=== PATIENT | male | born 1995 | race Caucasian/White ===

== ENCOUNTER 2023-07-17 18:44 | Emergency (ER) | payer OTHER, SELFPAY ==
[2023-07-17 18:44] VITALS: BP 171/92; PULSE 106; RESP 22; TEMP 36.3; O2SAT 96; BMI 81.2
--- NOTE | 2023-07-17 19:11 | ED.VIS.GI ---
HPI HPI - GI History of Present Illness Chief Complaint: Abd Pain Informant: patient Abdominal Pain/Flank Pain Onset: Today and Yesterday Context: Gradual Onset Timing: Continuous Current Severity: Mild Maximum Severity: Mild Nausea/Vomiting/Emesis GI Symptom: Positive for Nausea; Negative for Vomiting Onset: Today and Yesterday Severity: Mild Diarrhea/Melena/Hematochezia GI Symptom: Positive for Diarrhea; Negative for Melena or Hematochezia Onset: Today and Yesterday Stool Quality: Positive for Loose Severity: Mild Associated Symptoms Associated Symptoms: Negative for Dysuria, Frequency or Hematuria Narrative Narrative: 27-year-old male no signet past medical history. No prior abdominal surgery. States yesterday and today has had nausea with some loose stools. Denies vomiting. Denies fever. Denies dysuria. Denies any significant abdominal pain. No abdominal trauma. He really just wanted a work excuse. He went to an urgent care who was concerned and seen in the emergency department for further evaluation. Prior similar symptoms: Yes Recent Illness/Hospitalization: No PFSH PFSH Medical History no medical history no medical history Home Medications Ibuprofen [Motrin] 800 mg PO TID PRN PRN Pain #20 tabs 05/31/15 [Rx Last Taken Unknown] cephalexin 500 mg capsule 500 mg PO Q6 ##40 05/31/15 [Rx Last Taken Unknown] cyclobenzaprine 10 mg tablet 10 mg PO TID PRN Muscle Spasm ##20 05/31/15 [Rx Last Taken Unknown] oxycodone-acetaminophen 5 mg-325 mg tablet 1 - 2 tab PO Q4H PRN PRN Pain #20 tabs 05/31/15 [Rx Last Taken Unknown] Allergy/AdvReac Type Severity Reaction Status Date / Time Penicillins Allergy Hives Verified 07/17/23 18:47 Surgical History no surgical history Social History Smoking Status: Never smoker ROS ROS ED ROS Narrative Nausea and loose stools. Review of Systems ROS Unobtainable: Denies due to encephalopathy Constitutional Constitutional ED: Denies chills or fever(s) ENT ENT ED: Denies ear pain Cardiovascular Cardiovascular: Denies chest pain Respiratory/Chest Respiratory/Chest: Denies cough or dyspnea Gastrointestinal Gastrointestinal: Reports diarrhea and nausea; Denies abdominal pain, constipation, melena or vomiting Genitourinary Genitourinary ED: Denies dysuria or hematuria Musculoskeletal Musculoskeletal: Denies arthralgias Integumentary Denies abscess Neurologic Neurologic: Denies headache(s) Psychiatric Psychiatric: Denies anxiety Endocrine Endocrinology: Denies polydipsia Hematologic/Lymphatic Hematologic/Lymphatic: Denies easy bleeding Allergic/Immunologic Allergic/Immunologic ED: Denies mouth swelling or tongue swelling EXAM Physical Exam Narrative Exam Narrative: 27-year-old male vital signs stable afebrile. Does not look septic toxic or in any distress. H EENT exam unremarkable. Neck nontender no lymphadenopathy. Lungs clear to auscultation bilaterally. Heart regular rhythm no murmur. Chest were nontender. Abdomen soft, nontender, nondistended normal bowel sounds no peritoneal signs. Patient has absolutely no abdominal tenderness. No right lower quadrant or McBurney's point tenderness. No obvious hernia or mass. No distention. Moving all 4 extremities. Neurologically is awake and alert with no focal motor deficits. Const Vital Signs: 07/17/23 18:44 Temperature 97.4 F L Temperature Source Temporal Pulse Rate 106 H Respiratory Rate 22 H Blood Pressure 171/92 H Blood Pressure Mean 118 Pulse Ox 96 Oxygen Delivery Method Room Air Positive well nourished, well developed and obese; Negative for cachectic, contractures or unkempt General Appearance ED: well developed and NAD; Negative for unkempt, cachectic, contractures or pallor Nutritional Appearance: obese; Negative for cachectic HEENT Reports moist mucous membranes normocephalic and atraumatic; Negative for trauma or tenderness Eyes PERRL and EOMs intact bilaterally General Eye ED: Negative for pale conjunctiva, scleral icterus or other Neck no lymphadenopathy, supple and no JVD General: Negative for tenderness Carotids: Negative for other Lymph Lymphatic: Negative for other Resp normal respiratory effort and clear to auscultation bilaterally Effort and Inspection: Negative for respiratory distress Auscultation: Negative for rales, rhonchi or wheezes Cardio regular rate, regular rhythm, S1 normal heart sound, S2 normal heart sound and no murmurs Rate: Negative for bradycardia or tachycardic Rhythm: Negative for abnormal rhythm GI non-tender, non-distended and no masses Inspection: Negative for abdominal distention Auscultation: normoactive bowel sounds Palpation: soft; Negative for tender, guarding or rigid Back/Spine no CVA tenderness General Back: Negative for CVA tenderness Cervical Spine: Negative for cervical spine tenderness Thoracic Spine / Upper Back: Negative for thoracic spinal tenderness Lumbar Spine / Lower Back: Negative for lumbar spinal tenderness Coccyx: Negative for other Extremity full ROM General Extremety ED: Negative for edema or tenderness General Extremity: Negative for edema Neuro CN's II-XII intact bilaterally and moves all extremities Sensorium / Orientation: alert, oriented to person, oriented to place and oriented to time; Negative for orientation impaired, confused, lethargic or stuporous Motor Exam: strength 5/5 throughout Psych mental status grossly normal and thought process normal Appearance: Negative for unkempt Attitude: No agitated Mood & Affect: Negative for depressed, anxious or tearful Skin no wounds General Skin Exam: Negative for jaundice or pallor Lesions: no lesions Rashes: no rashes Trauma: Negative for abrasion Nails: Negative for discolored MDM MDM MDM Narrative Medical decision making narrative: 27-year-old male history and symptoms consistent with a viral gastroenteritis. Abdomen is completely benign. He has had no vomiting. I do not think he needs any labs. He definitely at this time do not think he needs any imaging. He and I discussed appendicitis and other possible diagnoses if his symptoms progress he knows to return. He did not want a nausea medication at home. Discharge Plan Triage Chief Complaint: Abd Pain ED Provider: Alan Nelson Dx/Rx/DC Orders Clinical Impression: Gastroenteritis Instructions: ED Gastroenteritis, Viral (Adult) Prescriptions: No Action cyclobenzaprine 10 MG tablet 10 mg PO TID PRN (Reason: Muscle Spasm) Qty: 20 0RF oxycodone-acetaminophen 1 TABLET tablet 1 - 2 tab PO Q4H PRN PRN (Reason: Pain) Qty: 20 0RF Ibuprofen [Motrin] 800 MG tablet 800 mg PO TID PRN PRN (Reason: Pain) Qty: 20 0RF cephalexin 500 MG capsule 500 mg PO Q6 Qty: 40 0RF Primary Care Provider: NOT,DEFINED Referrals: Jc Dacosta MD [Med Staff - [employer]] - 3-5 Days if not improving NOT,DEFINED [Primary Care Provider] - Activity Restrictions/Additional Instructions: This appears to be a viral gastroenteritis. Plenty of fluids and rest. Increase your diet slowly as tolerated. Motrin and Tylenol for any pain. If you develop increasing abdominal pain specifically in the right lower quadrant you need to be reevaluated. At this time there is no signs of this being appendicitis. Disposition Disposition: Home, Self Care
== END 2023-07-17 19:20 | disposition home or self-care (01) ==
LOC: ED 19:15
PROVIDERS: Emergency Provider Emergency Medicine; Visit Provider Emergency Medicine
DX: K52.9 Noninfective gastroenteritis and colitis, unspecified (principal)
CPT/HCPCS: 99282; A4216

== ENCOUNTER → 2023-08-09 | Outpatient (CLI) | payer OTHER, SELFPAY | END | disposition home or self-care (01) | LOC: SL 20:25 | PROVIDERS: Referring Provider Nurse Practitioner Primary Care; Visit Provider Nurse Practitioner Primary Care | DX: R06.83 Snoring (principal); E66.01 Morbid (severe) obesity due to excess calories; Z68.45 Body mass index [BMI] 70 or greater, adult; R40.0 Somnolence | CPT/HCPCS: 95811 ==

== ENCOUNTER → 2023-10-11 | Outpatient (CLI) | payer OTHER, SELFPAY ==
--- OUTSIDE RECORDS SUMMARY | 2023-10-11 20:00 | XMS RPT_ITS | CCD ---
Author Name Unknown Address [address] [place] [address] Organization [facility] Care Team Providers [employer] Name Role Phone GUZMAN CAMPOS Unavailable Unavailable GUZMAN CAMPOS Unavailable Unavailable GUZMAN CAMPOS Unavailable Unavailable NO, DOCTOR ON Unavailable Unavailable NO, DOCTOR ON Unavailable Unavailable Unavailable Primary Care Provider Unavailabl e Unavailable Primary Care Provider Unavailabl e Ambika Johnson MD Primary Care Provider Podlogar CENTRAL SUPPLY TECHNICIAN.Toby MCCURDY Unavailable AMBIKA JOHNSON Primary Care Unavailab le PODLOGAR, TOBY Referring Unavailable PODLOGAR, TOBY Attending Unavailable SELF Referring Unavailable AMBIKA JOHNSON Primary Care Unavailab ELDER Zuñiga Attending Unavailable PODLOGAR, TOBY Attending Unavailable AMBIKA JOHNSON Primary Care Unavailab AMBIKA Burks Primary Care Unavailab le PODLOGAR, TOBY Attending Unavailable AMBIKA JOHNSON Primary Care Unavailab le AMBIKA JOHNSON Primary Care Unavailab le PODLOGAR, TOBY Attending Unavailable AMBIKA JOHNSON Primary Care Unavailab AMBIKA Burks Primary Care Unavailab le PODLOGAR, TOBY Attending Unavailable AMBIKA JOHNSON Primary Care Unavailab le AMBIKA JOHNSON Primary Care Unavailab le PODLOGAR, TOBY Attending Unavailable Allergies Allergy Classification Reported Allergen(s) Allergy Type Date of Onset Reaction(s) Facility (1 source) acetylcarnitine Drug Allergy [facility] Repository (2 sources) Penicillins; Translations: [PENICILLINS] [facility] Work Phone: (18 sources) Acetylcarnitine; Translations: [ACETYLCARNITINE] Drug Allergy 3 Unknown [facility] (17 sources) Penicillins Drug Allergy 5 Hives [facility] Work Phone: Medications Completed/Discontinued Medications Medication Drug Class(es) Dates Sig (Normalized) Sig (Original) fluticasone propionate 0.05 mg/actuat metered dose nasal spray (18 sources) Corticosteroid Start: 02-11-2022 take 2 spray(s) by mouth once daily fluticasone (FLONASE) 50 mcg/actuation nasal spray Use 2 Sprays in each nostril once daily. Rinse mouth after use. 11.1 mL 0 02/11/2022 Active Problems Active Problems Problem Classification Problem Date Documented Da te Episodic/Chronic Abdominal pain (1 source) Right lower quadrant pain; Translations: [Right lower quadrant pain] 07-17-2023 Episodic Anxiety disorders (4 sources) Mixed anxiety and depressive disorder; Translations: [Anxiety disorder, unspecified] Onset: 03-26-2023 Chronic Essential hypertension (3 sources) Benign essential hypertension; Translations: [Essential (primary) hypertension] Onset: 08-30-2023 08-30-2023 Chronic Gastrointestinal hemorrhage (1 source) Hematochezia; Translations: [Melena] Episodic Mood disorders (1 source) Mood disorders; Translations: [Anxiety and depression] Onset: 03-26-2023 Other circulatory disease (1 source) Elevated blood-pressure reading, without diagnosis of hypertension; Translations: [Elevated BP without diagnosis of hypertension] Onset: 08-02-2023 Episodic Other lower respiratory disease (3 sources) Snoring; Translations: [Snoring] Episodic Other non-traumatic joint disorders (2 sources) Chronic pain of left upper limb; Translations: [Pain in left shoulder] 05-16-2023 Episodic Other nutritional; endocrine; and metabolic disorders (19 sources) Body mass index 40+ - severely obese; Translations: [Morbid (severe) obesity due to excess calories] Onset: 02-18-2018 02-18-2018 Chronic Other nutritional; endocrine; and metabolic disorders (2 sources) Morbid obesity; Translations: [Morbid (severe) obesity due to excess calories] Chronic Other nutritional; endocrine; and metabolic disorders (1 source) Severe obesity; Translations: [Morbid (severe) obesity due to excess calories] 12-01-2023 Chronic Other nutritional; endocrine; and metabolic disorders (2 sources) Morbid (severe) obesity due to excess calories; Translations: [Class 3 severe obesity without serious comorbidity with body mass index (BMI) greater than or equal to 70 in adult, unspecified obesity type (HCC)] Onset: 03-26-2023 Chronic Other nutritional; endocrine; and metabolic disorders (2 sources) Body mass index (BMI) 70 or greater, adult; Translations: [Class 3 severe obesity without serious comorbidity with body mass index (BMI) greater than or equal to 70 in adult, unspecified obesity type (HCC)] Onset: 03-26-2023 Chronic Other upper respiratory infections (1 source) Acute sinusitis; Translations: [Acute sinusitis, unspecified] Episodic Residual codes; unclassified (1 source) Obstructive sleep apnea syndrome; Translations: [Obstructive sleep apnea (adult) (pediatric)] 08-30-2023 Chronic Residual codes; unclassified (1 source) Obstructive sleep apnea (adult) (pediatric); Translations: [ERICA (obstructive sleep apnea)] Onset: 08-30-2023 Chronic Residual codes; unclassified (1 source) Pain; Translations: [Pain, unspecified] 05-16-2023 Episodic Viral infection (1 source) Viral disease; Translations: [Viral infection, unspecified] 09-05-2023 Episodic Past or Other Problems Problem Classification Problem Date Documented Da te Episodic/Chronic Coma; stupor; and brain damage (4 sources) Daytime somnolence; Translations: [Somnolence] Onset: 03-26-2023 Episodic Other lower respiratory disease (1 source) Snoring; Translations: [Snoring] Onset: 03-26-2023 Episodic Other screening for suspected conditions (not mental disorders or infectious disease) (3 sources) Patient encounter status; Translations: [Encounter for screening for lipoid disorders] Onset: 03-27-2023 Episodic Results Test Name Value Interpretation Reference Range Facil ity Vital Signs Date Time Vital Sign Value Performing Clinician [facility] 09-13-2023 10:27-0500 Body weight 248.75 kg Tboy Chester APRN.CNP Work Phone: [facility] 09-13-2023 10:27-0500 Diastolic blood pressure 88 mm[Hg] Toby Chester APRN.CNP Work Phone: [facility] 09-13-2023 10:27-0500 Heart rate 92 /min Toby Podlogar CENTRAL SUPPLY TECHNICIAN.CUT OFF [employer] Work Phone: [facility] 09-13-2023 10:27-0500 SaO2% (BldA) [Mass fraction] 98 % Toby Podlogar CENTRAL SUPPLY TECHNICIAN.CUT OFF [employer] Work Phone: [facility] 09-13-2023 10:27-0500 Systolic blood pressure 132 mm[Hg] Toby Podlogar CENTRAL SUPPLY TECHNICIAN.CUT OFF [employer] Work Phone: [facility] 09-05-2023 18:47-0500 Body temperature 98.6 [degF] Lefty Pendlebury CENTRAL SUPPLY TECHNICIAN.CUT OFF [employer] Work Phone: [facility] 09-05-2023 18:47-0500 Body weight 243.76 [facility] CENTRAL SUPPLY TECHNICIAN.CUT OFF [employer] Work Phone: [facility] 09-05-2023 18:47-0500 Diastolic blood pressure 68 mm[Hg] Lefty Pendlebury CENTRAL SUPPLY TECHNICIAN.CUT OFF [employer] Work Phone: [facility] 09-05-2023 18:47-0500 Heart rate 102 /min Lefty Pendlebury CENTRAL SUPPLY TECHNICIAN.CUT OFF [employer] Work Phone: [facility] 09-05-2023 18:47-0500 Respiratory rate 16 /min [facility] CENTRAL SUPPLY TECHNICIAN.CUT OFF [employer] Work Phone: [facility] 09-05-2023 18:47-0500 SaO2% (BldA) [Mass fraction] 97 % Lefty Pendlebury CENTRAL SUPPLY TECHNICIAN.CUT OFF [employer] Work Phone: [facility] 09-05-2023 18:47-0500 Systolic blood pressure 122 mm[Hg] Lefty Pendlebury CENTRAL SUPPLY TECHNICIAN.CUT OFF [employer] Work Phone: [facility] 08-30-2023 11:04-0500 Diastolic blood pressure 88 mm[Hg] Toby Podlogar CENTRAL SUPPLY TECHNICIAN.CUT OFF [employer] Work Phone: [facility] 08-30-2023 11:04-0500 Heart rate 87 /min Toby Podlogar CENTRAL SUPPLY TECHNICIAN.CUT OFF [employer] Work Phone: [facility] 08-30-2023 11:04-0500 Systolic blood pressure 167 mm[Hg] Toby Podlogar CENTRAL SUPPLY TECHNICIAN.CUT OFF [employer] Work Phone: [facility] 08-30-2023 10:40-0500 Body weight 245.49 kg Toby Podlogar CENTRAL SUPPLY TECHNICIAN.CUT OFF [employer] Work Phone: [facility] 08-30-2023 10:40-0500 Respiratory rate 18 /min Toby Podlogar CENTRAL SUPPLY TECHNICIAN.CUT OFF [employer] Work Phone: [facility] 08-30-2023 10:40-0500 SaO2% (BldA) [Mass fraction] 96 % Toby Podlogar CENTRAL SUPPLY TECHNICIAN.CUT OFF [employer] Work Phone: [facility] 05-24-2023 12:09-0400 Body weight 245.22 kg Toby Podlogar CENTRAL SUPPLY TECHNICIAN.CUT OFF [employer] Work Phone: [facility] 05-24-2023 12:09-0400 Diastolic blood pressure 82 mm[Hg] Toby Podlogar CENTRAL SUPPLY TECHNICIAN.CUT OFF [employer] Work Phone: [facility] 05-24-2023 12:09-0400 Heart rate 89 /min Toby Podlogar CENTRAL SUPPLY TECHNICIAN.CUT OFF [employer] Work Phone: [facility] 05-24-2023 12:09-0400 Respiratory rate 18 /min Toby Podlogar CENTRAL SUPPLY TECHNICIAN.CUT OFF [employer] Work Phone: [facility] 05-24-2023 12:09-0400 SaO2% (BldA) [Mass fraction] 94 % Toby Podlogar CENTRAL SUPPLY TECHNICIAN.CUT OFF [employer] Work Phone: [facility] 05-24-2023 12:09-0400 Systolic blood pressure 126 mm[Hg] Toby Podlogar CENTRAL SUPPLY TECHNICIAN.CUT OFF [employer] Work Phone: [facility] 04-26-2023 11:43-0400 Body weight 241.04 kg Toby Podlogar CENTRAL SUPPLY TECHNICIAN.CUT OFF [employer] Work Phone: [facility] 07-28-2023 11:43-0400 Diastolic blood pressure 84 mm[Hg] Toby Podlogar CENTRAL SUPPLY TECHNICIAN.CUT OFF [employer] Work Phone: [facility] 04-26-2023 11:43-0400 Heart rate 86 /min Toby Podlogar CENTRAL SUPPLY TECHNICIAN.CUT OFF [employer] Work Phone: [facility] 04-26-2023 11:43-0400 Respiratory rate 18 /min Toby Podlogar CENTRAL SUPPLY TECHNICIAN.CUT OFF [employer] Work Phone: [facility] 04-26-2023 11:43-0400 Systolic blood pressure 132 mm[Hg] Toby Podlogar CENTRAL SUPPLY TECHNICIAN.CUT OFF [employer] Work Phone: [facility] 03-26-2023 11:01-0400 Body height 175.5 cm Toby Podlogar CENTRAL SUPPLY TECHNICIAN.CUT OFF [employer] Work Phone: [facility] 03-26-2023 11:01-0400 Body weight 240.32 kg Toby Podlogar CENTRAL SUPPLY TECHNICIAN.CUT OFF [employer] Work Phone: [facility] 03-26-2023 11:01-0400 Diastolic blood pressure 78 mm[Hg] Toby Podlogar CENTRAL SUPPLY TECHNICIAN.CUT OFF [employer] Work Phone: [facility] 03-26-2023 11:01-0400 Heart rate 98 /min Toby Podlogar CENTRAL SUPPLY TECHNICIAN.CUT OFF [employer] Work Phone: [facility] 03-26-2023 11:01-0400 Respiratory rate 18 /min Toby Podlogar CENTRAL SUPPLY TECHNICIAN.CUT OFF [employer] Work Phone: [facility] 03-26-2023 11:01-0400 SaO2% (BldA) [Mass fraction] 96 % Toby Podlogar CENTRAL SUPPLY TECHNICIAN.CUT OFF [employer] Work Phone: [facility] 03-26-2023 11:01-0400 Systolic blood pressure 136 mm[Hg] Toby Podlogar CENTRAL SUPPLY TECHNICIAN.CUT OFF [employer] Work Phone: [facility] 11-06-2022 19:19-0500 Body temperature 98.71 [degF] Bethany Britt CENTRAL SUPPLY TECHNICIAN.CUT OFF [employer] Work Phone: [facility] 11-06-2022 19:19-0500 Diastolic blood pressure 90 mm[Hg] Bethany Praisler-Wood CENTRAL SUPPLY TECHNICIAN.CUT OFF [employer] LOG Work Phone: [facility] 11-06-2022 19:19-0500 Heart rate 120 /min Bethany Praisler-Wood CENTRAL SUPPLY TECHNICIAN.CUT OFF [employer] LOG Work Phone: [facility] 11-06-2022 19:19-0500 Respiratory rate 18 /min Bethany Praisler-Wood CENTRAL SUPPLY TECHNICIAN.CUT OFF [employer] Work Phone: [facility] 11-06-2022 19:19-0500 SaO2% (BldA) [Mass fraction] 97 % Bethany Praisler-Wood CENTRAL SUPPLY TECHNICIAN.CUT OFF [employer] LOG Work Phone: [facility] 11-06-2022 19:19-0500 Systolic blood pressure 144 mm[Hg] Bethany Praisler-Wood CENTRAL SUPPLY TECHNICIAN.CUT OFF [employer] Work Phone: [facility] 02-11-2022 14:22-0400 Body temperature 98.49 [degF] Kirstin Palmer CENTRAL SUPPLY TECHNICIAN.CUT OFF [employer] LOG Work Phone: [facility] 02-11-2022 14:22-0400 Body weight 219.09 kg Kirstin Palmer CENTRAL SUPPLY TECHNICIAN.CUT OFF [employer] Work Phone: [facility] 02-11-2022 14:22-0400 Diastolic blood pressure 86 mm[Hg] Kirstin Palmer CENTRAL SUPPLY TECHNICIAN.CUT OFF [employer] LOG Work Phone: [facility] 02-11-2022 14:22-0400 Heart rate 104 /min Kirstin Palmer CENTRAL SUPPLY TECHNICIAN.CUT OFF [employer] LOG Work Phone: [facility] 02-11-2022 14:22-0400 Respiratory rate 18 /min Kirstin Palmer CENTRAL SUPPLY TECHNICIAN.CUT OFF [employer] LOG Work Phone: [facility] 02-11-2022 14:22-0400 SaO2% (BldA) [Mass fraction] 98 % Kirstin Palmer CENTRAL SUPPLY TECHNICIAN.CUT OFF [employer] LOG Work Phone: [facility] 02-11-2022 14:22-0400 Systolic blood pressure 134 mm[Hg] Kirstin Palmer CENTRAL SUPPLY TECHNICIAN.KAZ Work Phone: [facility] Encounters Encounter Date Encounter Type Care Provider Facility Start: 09-13-2023 End: 09-13-2023 ambulatory TOBY PODLOGAR Facility:[facility] Start: 09-13-2023 End: 09-13-2023 Patient encounter procedure Toby Podlogar CENTRAL SUPPLY TECHNICIAN.KAZ Work Phone: [facility] [place] Procedures Date Procedure Procedure Detail Performing Clinician Start: 09-13-2023 PFIZER-BIONTECH COVI D-19 VACCINE () AGE 12+ YR Toby Podlogar CENTRAL SUPPLY TECHNICIAN.KAZ Work Phone: Start: 09-13-2023 INFLUENZA VACCINE, A GE 6 MO - 64 YR, QUADRIVALENT (AFLURIA, FLULAVAL, FLUZONE) Toby Podlogar CENTRAL SUPPLY TECHNICIAN.KAZ Work Phone: Start: 11-06-2016 Adult depression scr eening assessment Kirstin Palmer CENTRAL SUPPLY TECHNICIAN.CUT OFF [employer]ER LOG Work Phone: Plan of Treatment Date Care Activity Detail Author Start: 05-31-2025 Urine microalbumin profile DTa P,Tdap,Td Vaccine (2 - Td or Tdap) [facility] Start: 09-13-2024 Annual PCP Team Skate Boarder fidencio Disease Visit Annual PCP Team Chronic Disease Visit [facility] Start: 03-26-2024 HEPATITIS C SCREENING HEPATITIS C [facility] Immunizations Immunization Date Immunization Notes Care Provider Fa cility 09-13-2023 COVID-19 vaccine, ag e 12+ yr, season (PFIZER-BIONTECH) Toby Podlogar CENTRAL SUPPLY TECHNICIAN.CUT OFF [employer]ER LOG Work Phone: [facility] 09-13-2023 influenza, injectabl e, quadrivalent, contains preservative Toby Podlogar CENTRAL SUPPLY TECHNICIAN.CUT OFF [employer] LOG Work Phone: [facility] 09-22-2021 influenza virus vaccine, unspecified formulation Elbert Braun MD Work Phone: [facility] 01-19-2021 COVID-19 vaccine, fu ll dose (MODERNA) Kirstin Palmer CENTRAL SUPPLY TECHNICIAN.CUT OFF [employer] LOG Work Phone: [facility] Work Phone: 12-22-2020 COVID-19 vaccine, fu ll dose (MODERNA) Kirstin Palmer CENTRAL SUPPLY TECHNICIAN.CUT OFF [employer]ER LOG Work Phone: [facility] Work Phone: 11-07-2019 influenza, injectabl e, quadrivalent, preservative free Kirstin Palmer CENTRAL SUPPLY TECHNICIAN.CUT OFF [employer]ER LOG Work Phone: [facility] Work Phone: Payers Date Payer Category Payer Unknown [id number] 2022 Unknown [id number] 2021 Unknown [employer] POS OOS [id number] 2021-Present [phone] [address] [place] [address] POS [id number] Unknown [id number] Social History Date Type Detail Facility Start: 08-04-2012 Tobacco smoking stat [facility] Never smoked tobacco [facility] Work Phone: Start: 02-11-2022 Alcohol intake Current non-dr devulcanizer head of alcohol (finding) [facility] Start: 1995 Sex Assigned At Not on file [facility] Start: 02-01-2022 End: 02-11-2022 Exposure to SARS-CoV-2 (event) Not sure [facility] Start: 08-04-2012 Tobacco use and exposure Smokeless tobacco non-user [facility] Start: 11-06-2022 Alcohol intake Current drinke r of alcohol (finding) [facility] Start: 11-06-2022 Alcohol Comment social [facility] Start: 03-26-2023 End: 09-13-2023 Alcohol intake Not Asked [facility] Start: 03-26-2023 End: 08-02-2023 History of Social function [facility] Work Phone: Start: 03-26-2023 End: 08-02-2023 Tobacco use panel [facility] Work Phone: Adult Depression Screening Assessment 4 [facility] Work Phone: Clinical Notes 02-11-2022 to 09-13-2023 Toby Chester APRN.KAZ - 09/13/2023 10:22 AM Lefty Castro APRN.KAZ - 09/05/2023 6:52 PM Toby Santiago APRN.CNP - 08/30/2023 10:34 AM ESTPatient InstructionsPatient Instructions Note Date & Type Note Facility 09-13-2023 Note HNO ID: [id number] Author: Toby Chester APRN.CUT OFF SAWYER LOG Service: ? Author Type: Nurse Practitioner Type: Progress Notes Filed: 09/13/2023 11:51 AM Note Text: 09/13/2023 Patient presents with: Blood Pressure: 2 week follow up SUBJECTIVE: This is a 28 year old that is here today for Above Complaints. BP elevated at last office visit. Started on losartan. Taking and tolerating without side effects. Denies visual changes, lightheadedness, dizziness, slurred speech, facial drooping, extremity numbness, tingling or weakness PAST MEDICAL HISTORY Diagnosis Date NEGATIVE MEDICAL HISTORY ALLERGIES Penicillins and Acetylcarnitine MEDICATIONS Current Outpatient Medications Medication Sig losartan (COZAAR) 25 mg tablet Take 1 tablet by mouth once daily. sertraline (ZOLOFT) 50 mg tablet Take 1 tablet by mouth once daily. (Patient not taking: Reported on 05/15/2023) fluticasone (FLONASE) 50 mcg/actuation nasal spray Use 2 Sprays in each nostril once daily. Rinse mouth after use. ibuprofen (MOTRIN) 800 mg tablet Take 1 tablet by mouth every 8 hours as needed for Pain. Take with food. No current facility-administered medications for this visit. Medications and allergies reviewed by this provider. SOCIAL HISTORY Social History Tobacco Use Smoking status: Never Smokeless tobacco: Never Vaping Use Vaping Use: Never used Substance Use Topics Drug use: Yes Comment: dustin rarely REVIEW OF SYSTEMS All other reviewed and negative other than HPI. OBJECTIVE: BP 132/88 Pulse 92 Wt (!) 248.8 kg (548 lb 6.4 oz) SpO2 98% BMI 80.76 kg/m? . Vital signs reviewed by this provider. APPEARANCE Well appearing, alert, in no acute distress, well-hydrated, well nourished. Hepatitis B Vaccine(1 of 3 - 3-dose series) Never done Influenza Vaccine(1) due on 05/31/2023 Covid-19 Vaccine(4 - season) due on 05/31/2023 Hepatitis C Screening due on 03/26/2024 HIV Screening due on 03/26/2024 DTaP,Tdap,Td Vaccine(2 - Td or Tdap) due on 05/31/2025 Depression Assessment Completed HPV Vaccine Aged Out ASSESSMENT/PLAN: 1. Benign essential HTN - ICD9: 401.1, ICD10: I10 (primary diagnosis) - Controlled - Continue current medications - Recommend home blood pressure monitoring, to bring results to next visit - Encouraged sodium restriction, DASH or Mediterranean diet - Recommend regular aerobic exercise - Discussed need for and benefit of weight loss. BMI 80.76 kg/(m2) - Follow up in 6 months for hypertension visit 2. Encounter for immunization - ICD9: V03.89, ICD10: Z23 - INFLUENZA VACCINE, AGE 6 MO - 64 YR, QUADRIVALENT (AFLURIA, FLULAVAL, FLUZONE) - [employer] COVID-19 VACCINE ( SEASON) AGE 12+ YR Toby Sierralogkristian, PEDRO.CUT OFF SAWYER LOG Prescription instructions reviewed with patient as applicable. Patient advised if symptoms do not improve or if symptoms worsen sooner, to contact their primary care physician. Potential red flag symptoms discussed with the patient. Reviewed appropriate action plan to take if red flag symptoms occur. Patient agreeable to treatment plan. I spent a total of 20 minutes on the date of the service which included preparing to see the patient, [id number] patient care, completing clinical documentation, obtaining and/or reviewing separately obtained history, performing a medically appropriate examination, counseling and educating the patient/family/caregiver, and ordering medications, tests, or procedures. [facility] 09-13-2023 History of Presen t illness Narrative 09/13/2023 Patient presents with: Blood Pressure: 2 week follow up SUBJECTIVE: This is a 28 year old that is here today for Above Complaints. BP elevated at last office visit. Started on losartan. Taking and tolerating without side effects. Denies visual changes, lightheadedness, dizziness, slurred speech, facial drooping, extremity numbness, tingling or weakness PAST MEDICAL HISTORY Diagnosis Date NEGATIVE MEDICAL HISTORY ALLERGIES Penicillins and Acetylcarnitine MEDICATIONS Current Outpatient Medications Medication Sig losartan (COZAAR) 25 mg tablet Take 1 tablet by mouth once daily. sertraline (ZOLOFT) 50 mg tablet Take 1 tablet by mouth once daily. (Patient not taking: Reported on 05/15/2023) fluticasone (FLONASE) 50 mcg/actuation nasal spray Use 2 Sprays in each nostril once daily. Rinse mouth after use. ibuprofen (MOTRIN) 800 mg tablet Take 1 tablet by mouth every 8 hours as needed for Pain. Take with food. No current facility-administered medications for this visit. Medications and allergies reviewed by this provider. SOCIAL HISTORY Social History Tobacco Use Smoking status: Never Smokeless tobacco: Never Vaping Use Vaping Use: Never used Substance Use Topics Drug use: Yes Comment: dustin rarely REVIEW OF SYSTEMS All other reviewed and negative other than HPI. OBJECTIVE: BP 132/88 Pulse 92 Wt (!) 248.8 kg (548 lb 6.4 oz) SpO2 98% BMI 80.76 kg/m . Vital signs reviewed by this provider. APPEARANCE Well appearing, alert, in no acute distress, well-hydrated, well nourished. Hepatitis B Vaccine(1 of 3 - 3-dose series) Never done Influenza Vaccine(1) due on 05/31/2023 Covid-19 Vaccine( season) due on 05/31/2023 Hepatitis C Screening due on 03/26/2024 HIV Screening due on 03/26/2024 DTaP,Tdap,Td Vaccine(2 - Td or Tdap) due on 05/31/2025 Depression Assessment Completed HPV Vaccine Aged Out ASSESSMENT/PLAN: 1. Benign essential HTN - ICD9: 401.1, ICD10: I10 (primary diagnosis) - Controlled - Continue current medications - Recommend home blood pressure monitoring, to bring results to next visit - Encouraged sodium restriction, DASH or Mediterranean diet - Recommend regular aerobic exercise - Discussed need for and benefit of weight loss. BMI 80.76 kg/(m^2) - Follow up in 6 months for hypertension visit 2. Encounter for immunization - ICD9: V03.89, ICD10: Z23 - INFLUENZA VACCINE, AGE 6 MO - 64 YR, QUADRIVALENT (AFLURIA, FLULAVAL, FLUZONE) - [employer] [facility] COVID-19 VACCINE ( SEASON) AGE 12+ YR Toby Chester APRN.CUT OFF SAWYER LOG Prescription instructions reviewed with patient as applicable. Patient advised if symptoms do not improve or if symptoms worsen sooner, to contact their primary care physician. Potential red flag symptoms discussed with the patient. Reviewed appropriate action plan to take if red flag symptoms occur. Patient agreeable to treatment plan. I spent a total of 20 minutes on the date of the service which included preparing to see the patient, [id number] patient care, completing clinical documentation, obtaining and/or reviewing separately obtained history, performing a medically appropriate examination, counseling and educating the patient/family/caregiver, and ordering medications, tests, or procedures. documented in this encounter [facility] [place] 09-05-2023 Note HNO ID: [id number] Author: Lefty Hairston APRN.KAZ Service: ? Author Type: Nurse Practitioner Type: Progress Notes Filed: 09/05/2023 7:01 PM Note Text: Subjective HPI Nontoxic-appearing male presents urgent care chief complaint nasal congestion sneezing headache. Duration of symptoms 1 day. Associated symptoms listed above. States he does have a transient cough this is not prominent. No known sick contacts. No OTC medication use. Feeling better this evening then this morning. Denies any fever body aches chills productive cough chest pain shortness of breath pleuritic pain hemoptysis nausea vomiting abdominal pain change in bowel or bladder habits. Past medical history prescription medication use and allergies reviewed. .Patient presents with: Cough: Cough, runny nose, sneezing and TOLLIVER x 1 day PAST MEDICAL HISTORY Diagnosis Date NEGATIVE MEDICAL HISTORY PAST SURGICAL HISTORY Procedure Laterality Date NONE ALLERGIES Penicillins and Acetylcarnitine MEDICATIONS losartan (COZAAR) 25 mg tablet Take 1 tablet by mouth once daily. fluticasone (FLONASE) 50 mcg/actuation nasal spray Use 2 Sprays in each nostril once daily. Rinse mouth after use. sertraline (ZOLOFT) 50 mg tablet Take 1 tablet by mouth once daily. (Patient not taking: Reported on 05/15/2023) ibuprofen (MOTRIN) 800 mg tablet Take 1 tablet by mouth every 8 hours as needed for Pain. Take with food. FAMILY HISTORY Problem Relation Age of Onset other (htn) Father Coronary Artery Disease Maternal Grandmother Cancer Maternal Grandmother Soft tissue CA Cancer Paternal Grandmother Lung CA Diabetes Paternal Grandfather Coronary Artery Disease Paternal Grandfather Asthma Sister Social History Tobacco Use Smoking status: Never Smokeless tobacco: Never Vaping Use Vaping Use: Never used Substance Use Topics Drug use: Yes Comment: dustin rarely BP 122/68 Pulse 102 Temp 37 ?C (98.6 ?F) (Tympanic) Resp 16 Wt (!) 243.8 kg (537 lb 6.4 oz) SpO2 97% BMI 79.14 kg/m? Hr 89 Review of Systems Constitutional: Negative for chills, fever and malaise/fatigue. HENT: Positive for congestion. Negative for ear discharge, ear pain, sinus pain and sore throat. Eyes: Negative for blurred vision, pain, discharge and redness. Respiratory: Negative for cough, hemoptysis, sputum production, shortness of breath, wheezing and stridor. Cardiovascular: Negative for chest pain. Gastrointestinal: Negative for abdominal pain, diarrhea, nausea and vomiting. Musculoskeletal: Negative for myalgias. Skin: Negative for itching and rash. Neurological: Positive for headaches. Negative for dizziness. Objective Physical Exam Constitutional: General: He is not in acute distress. Appearance: He is not diaphoretic. HENT: Head: Normocephalic. Jaw: No trismus, tenderness, swelling or pain on movement. Nose: Congestion present. Mouth/Throat: Mouth: Mucous membranes are moist. Pharynx: Oropharynx is clear. Uvula midline. No pharyngeal swelling, oropharyngeal exudate, posterior oropharyngeal erythema or uvula swelling. Eyes: Conjunctiva/sclera: Conjunctivae normal. Pupils: Pupils are equal, round, and reactive to light. Cardiovascular: Rate and Rhythm: Normal rate and regular rhythm. Heart sounds: Normal heart sounds. Pulmonary: Effort: Pulmonary effort is normal. No tachypnea, accessory muscle usage or respiratory distress. Breath sounds: Normal breath sounds. No stridor. No wheezing, rhonchi or rales. Abdominal: General: There is no distension. Palpations: Abdomen is soft. Tenderness: There is no abdominal tenderness. There is no guarding or rebound. Musculoskeletal: Cervical back: Normal range of motion and neck supple. No edema, erythema, rigidity or tenderness. No pain with movement. Normal range of motion. Lymphadenopathy: Cervical: No cervical adenopathy. Skin: General: Skin is warm and dry. Neurological: Mental Status: He is alert and oriented to person, place, and time. ASSESSMENT/PLAN: 1. Viral illness - ICD9: 079.99, ICD10: B34.9 - Discussed viral etiology and rationale for treatment. - Symptomatic treatment with prn analgesia - Supportive care with fluids and rest Symptoms progressively improving. No evidence of bacterial infection. Patient was educated on supportive therapies. Patient will follow up with primary care provider as needed. Patient was instructed to immediately proceed to emergency room for any new, worsening, or symptoms lasting longer than anticipated. The patient's clinical presentation is otherwise unremarkable at this time. Based on exam and clinical finding, the patient is stable for discharge. Plan of care was discussed with patient. Patient verbalizes understanding and agrees to plan of care. This note was generated using Direct[employer] software. It may contain errors in wording, punctuation, or spelling. Lefty Hairston APRN (more content not included)... [facility] 09-05-2023 History of Presen t illness Narrative Subjective HPI Nontoxic-appearing male presents urgent care chief complaint nasal congestion sneezing headache. Duration of symptoms 1 day. Associated symptoms listed above. States he does have a transient cough this is not prominent. No known sick contacts. No OTC medication use. Feeling better this evening then this morning. Denies any fever body aches chills productive cough chest pain shortness of breath pleuritic pain hemoptysis nausea vomiting abdominal pain change in bowel or bladder habits. Past medical history prescription medication use and allergies reviewed. .Patient presents with: Cough: Cough, runny nose, sneezing and TOLLIVER x 1 day PAST MEDICAL HISTORY Diagnosis Date NEGATIVE MEDICAL HISTORY PAST SURGICAL HISTORY Procedure Laterality Date NONE ALLERGIES Penicillins and Acetylcarnitine MEDICATIONS losartan (COZAAR) 25 mg tablet Take 1 tablet by mouth once daily. fluticasone (FLONASE) 50 mcg/actuation nasal spray Use 2 Sprays in each nostril once daily. Rinse mouth after use. sertraline (ZOLOFT) 50 mg tablet Take 1 tablet by mouth once daily. (Patient not taking: Reported on 05/15/2023) ibuprofen (MOTRIN) 800 mg tablet Take 1 tablet by mouth every 8 hours as needed for Pain. Take with food. FAMILY HISTORY Problem Relation Age of Onset other (htn) Father Coronary Artery Disease Maternal Grandmother Cancer Maternal Grandmother Soft tissue CA Cancer Paternal Grandmother Lung CA Diabetes Paternal Grandfather Coronary Artery Disease Paternal Grandfather Asthma Sister Social History Tobacco Use Smoking status: Never Smokeless tobacco: Never Vaping Use Vaping Use: Never used Substance Use Topics Drug use: Yes Comment: marijuna rarely BP 122/68 Pulse 102 Temp 37 C (98.6 F) (Tympanic) Resp 16 Wt (!) 243.8 kg (537 lb 6.4 oz) SpO2 97% BMI 79.14 kg/m Hr 89 Review of Systems Constitutional: Negative for chills, fever and malaise/fatigue. HENT: Positive for congestion. Negative for ear discharge, ear pain, sinus pain and sore throat. Eyes: Negative for blurred vision, pain, discharge and redness. Respiratory: Negative for cough, hemoptysis, sputum production, shortness of breath, wheezing and stridor. Cardiovascular: Negative for chest pain. Gastrointestinal: Negative for abdominal pain, diarrhea, nausea and vomiting. Musculoskeletal: Negative for myalgias. Skin: Negative for itching and rash. Neurological: Positive for headaches. Negative for dizziness. Objective Physical Exam Constitutional: General: He is not in acute distress. Appearance: He is not diaphoretic. HENT: Head: Normocephalic. Jaw: No trismus, tenderness, swelling or pain on movement. Nose: Congestion present. Mouth/Throat: Mouth: Mucous membranes are moist. Pharynx: Oropharynx is clear. Uvula midline. No pharyngeal swelling, oropharyngeal exudate, posterior oropharyngeal erythema or uvula swelling. Eyes: Conjunctiva/sclera: Conjunctivae normal. Pupils: Pupils are equal, round, and reactive to light. Cardiovascular: Rate and Rhythm: Normal rate and regular rhythm. Heart sounds: Normal heart sounds. Pulmonary: Effort: Pulmonary effort is normal. No tachypnea, accessory muscle usage or respiratory distress. Breath sounds: Normal breath sounds. No stridor. No wheezing, rhonchi or rales. Abdominal: General: There is no distension. Palpations: Abdomen is soft. Tenderness: There is no abdominal tenderness. There is no guarding or rebound. Musculoskeletal: Cervical back: Normal range of motion and neck supple. No edema, erythema, rigidity or tenderness. No pain with movement. Normal range of motion. Lymphadenopathy: Cervical: No cervical adenopathy. Skin: General: Skin is warm and dry. Neurological: Mental Status: He is alert and oriented to person, place, and time. ASSESSMENT/PLAN: 1. Viral illness - ICD9: 079.99, ICD10: B34.9 - Discussed viral etiology and rationale for treatment. - Symptomatic treatment with prn analgesia - Supportive care with fluids and rest Symptoms progressively improving. No evidence of bacterial infection. Patient was educated on supportive therapies. Patient will follow up with primary care provider as needed. Patient was instructed to immediately proceed to emergency room for any new, worsening, or symptoms lasting longer than anticipated. The patient's clinical presentation is otherwise unremarkable at this time. Based on exam and clinical finding, the patient is stable for discharge. Plan of care was discussed with patient. Patient verbalizes understanding and agrees to plan of care. This note was generated using Direct[employer] software. It may contain errors in wording, punctuation, or spelling. Lefty Hairston APRN.KAZ documented in this encounter [facility] [place] 08-30-2023 Note HNO ID: [id number] Author: Toby Chester APRN.KAZ Service: ? Author Type: Nurse Practitioner Type: Progress Notes Filed: 08/30/2023 12:22 PM Note Text: /1/2023 Patient presents with: Recheck: Blood pressure SUBJECTIVE: This is a 28 year old that is here today for Above Complaints. BP elevated at last office visit. No hx of HTN. No medication started at that time. Has not checked BP outside of here. Denies visual changes, headaches, dizziness, lightheadedness, slurred speech, facial drooping, SOB, dyspnea, chest pain, palpitations or extremity numbness, tingling or weakness Recent sleep study showing sever sleep apnea and recommends PAP titration. Order for this placed as well as consult to sleep medicine Checked with insurance about weight loss medications and he reports they do not cover. PAST MEDICAL HISTORY Diagnosis Date NEGATIVE MEDICAL HISTORY ALLERGIES Penicillins and Acetylcarnitine MEDICATIONS Current Outpatient Medications Medication Sig sertraline (ZOLOFT) 50 mg tablet Take 1 tablet by mouth once daily. (Patient not taking: Reported on 05/15/2023) fluticasone (FLONASE) 50 mcg/actuation nasal spray Use 2 Sprays in each nostril once daily. Rinse mouth after use. ibuprofen (MOTRIN) 800 mg tablet Take 1 tablet by mouth every 8 hours as needed for Pain. Take with food. No current facility-administered medications for this visit. Medications and allergies reviewed by this provider. SOCIAL HISTORY Social History Tobacco Use Smoking status: Never Smokeless tobacco: Never Vaping Use Vaping Use: Never used Substance Use Topics Drug use: Yes Comment: dustin rarely REVIEW OF SYSTEMS All other reviewed and negative other than HPI. OBJECTIVE: BP 156/95 Pulse 87 Resp 18 Wt (!) 245.5 kg (541 lb 3.2 oz) SpO2 96% BMI 79.70 kg/m? . Vital signs reviewed by this provider. APPEARANCE Well appearing, alert, in no acute distress, well-hydrated, well nourished. HEART RRR with normal S1 and S2, no murmurs, no gallops, no JVD appreciated LUNG clear to auscultation. No wheezes, rhonchi or rales Hepatitis B Vaccine(1 of 3 - 3-dose series) Never done Influenza Vaccine(1) due on 05/31/2023 Covid-19 Vaccine(2022- season) due on 05/31/2023 Hepatitis C Screening due on 03/26/2024 HIV Screening due on 03/26/2024 DTaP,Tdap,Td Vaccine(2 - Td or Tdap) due on 05/31/2025 Depression Assessment Completed HPV Vaccine Aged Out ASSESSMENT/PLAN: 1. Benign essential HTN - ICD9: 401.1, ICD10: I10 (primary diagnosis) - New diagnosis - Start losartan - Recommend home blood pressure monitoring, to bring results to next visit - Encouraged sodium restriction, DASH or Mediterranean diet - Recommend regular aerobic exercise - Discussed need for and benefit of weight loss. BMI 79.70 kg/(m2) - Follow up in 2 weeks for hypertension visit - LOSARTAN 25 MG TABLET 2. Class 3 severe obesity without serious comorbidity with body mass index (BMI) greater than or equal to 70 in adult, unspecified obesity type (HCC) - ICD9: 278.01, V85.45, ICD10: E66.01, Z68.45 S-table - [facility] 3. ERICA (obstructive sleep apnea) - ICD9: 327.23, ICD10: G47.33 - will complete at [facility] - will fax over order and he will need to call and schedule - needs to make appointment with sleep medicine Toby SierralogPEDRO townsend.CUT OFF SAWYER LOG Prescription instructions reviewed with patient as applicable. Patient advised if symptoms do not improve or if symptoms worsen sooner, to contact their primary care physician. Potential red flag symptoms discussed with the patient. Reviewed appropriate action plan to take if red flag symptoms occur. Patient agreeable to treatment plan. I spent a total of 25 minutes on the date of the service which included preparing to see the patient, [id number] patient care, completing clinical documentation, obtaining and/or reviewing separately obtained history, performing a medically appropriate examination, counseling and educating the patient/family/caregiver, and ordering medications, tests, or procedures. [facility] 08-30-2023 History of Presen t illness Narrative [id number]/1/2023 Patient presents with: Recheck: Blood pressure SUBJECTIVE: This is a 28 year old that is here today for Above Complaints. BP elevated at last office visit. No hx of HTN. No medication started at that time. Has not checked BP outside of here. Denies visual changes, headaches, dizziness, lightheadedness, slurred speech, facial drooping, SOB, dyspnea, chest pain, palpitations or extremity numbness, tingling or weakness Recent sleep study showing sever sleep apnea and recommends PAP titration. Order for this placed as well as consult to sleep medicine Checked with insurance about weight loss medications and he reports they do not cover. PAST MEDICAL HISTORY Diagnosis Date NEGATIVE MEDICAL HISTORY ALLERGIES Penicillins and Acetylcarnitine MEDICATIONS Current Outpatient Medications Medication Sig sertraline (ZOLOFT) 50 mg tablet Take 1 tablet by mouth once daily. (Patient not taking: Reported on 05/15/2023) fluticasone (FLONASE) 50 mcg/actuation nasal spray Use 2 Sprays in each nostril once daily. Rinse mouth after use. ibuprofen (MOTRIN) 800 mg tablet Take 1 tablet by mouth every 8 hours as needed for Pain. Take with food. No current facility-administered medications for this visit. Medications and allergies reviewed by this provider. SOCIAL HISTORY Social History Tobacco Use Smoking status: Never Smokeless tobacco: Never Vaping Use Vaping Use: Never used Substance Use Topics Drug use: Yes Comment: wallywilmer rarely REVIEW OF SYSTEMS All other reviewed and negative other than HPI. OBJECTIVE: BP 156/95 Pulse 87 Resp 18 Wt (!) 245.5 kg (541 lb 3.2 oz) SpO2 96% BMI 79.70 kg/m . Vital signs reviewed by this provider. APPEARANCE Well appearing, alert, in no acute distress, well-hydrated, well nourished. HEART RRR with normal S1 and S2, no murmurs, no gallops, no JVD appreciated LUNG clear to auscultation. No wheezes, rhonchi or rales Hepatitis B Vaccine(1 of 3 - 3-dose series) Never done Influenza Vaccine(1) due on 05/31/2023 Covid-19 Vaccine(4 - 2022- season) due on 05/31/2023 Hepatitis C Screening due on 03/26/2024 HIV Screening due on 03/26/2024 DTaP,Tdap,Td Vaccine(2 - Td or Tdap) due on 05/31/2025 Depression Assessment Completed HPV Vaccine Aged Out ASSESSMENT/PLAN: 1. Benign essential HTN - ICD9: 401.1, ICD10: I10 (primary diagnosis) - New diagnosis - Start losartan - Recommend home blood pressure monitoring, to bring results to next visit - Encouraged sodium restriction, DASH or Mediterranean diet - Recommend regular aerobic exercise - Discussed need for and benefit of weight loss. BMI 79.70 kg/(m^2) - Follow up in 2 weeks for hypertension visit - LOSARTAN 25 MG TABLET 2. Class 3 severe obesity without serious comorbidity with body mass index (BMI) greater than or equal to 70 in adult, unspecified obesity type (HCC) - ICD9: 278.01, V85.45, ICD10: E66.01, Z68.45 S-table - [facility] 3. ERICA (obstructive sleep apnea) - ICD9: 327.23, ICD10: G47.33 - will complete at [facility] - will fax over order and he will need to call and schedule - needs to make appointment with sleep medicine Toby Chester APRN.CUT OFF SAWYER LOG Prescription instructions reviewed with patient as applicable. Patient advised if symptoms do not improve or if symptoms worsen sooner, to contact their primary care physician. Potential red flag symptoms discussed with the patient. Reviewed appropriate action plan to take if red flag symptoms occur. Patient agreeable to treatment plan. I spent a total of 25 minutes on the date of the service which included preparing to see the patient, [id number] patient care, completing clinical documentation, obtaining and/or reviewing separately obtained history, performing a medically appropriate examination, counseling and educating the patient/family/caregiver, and ordering medications, tests, or procedures. documented in this encounter [facility] 08-16-2023 Miscellaneous Notes Detailed VM left on pt's identified voicemail of information below. Sunita Welsh LPN LM to contact office. Danielle Travis MA [employer] message sent to pt notifying him we attempted to contact him to setup 4 wk f/u appt. Notified pt to setup appt end of /beginning of August or call office to schedule. Sara Dennison Ma Patient telephoned to schedule 4 week follow up for blood pressure. Message left to call back and schedule. Aydee Perrin LPN documented in this encounter [facility] 08-02-2023 Note HNO ID: [id number] Author: Toby Chester APRN.KAZ Service: ? Author Type: Nurse Practitioner Type: Progress Notes Filed: 08/02/2023 6:35 PM Note Text: 08/02/2023 Patient presents with: Weight Problem: Wants to discuss weight loss options SUBJECTIVE: This is a 28 year old that is here today for Above Complaints. Would like to discuss weight loss medications. Reports he has tried diet and exercise but never seems to lose any substantial amount of weight. He would like to get down into the 200's PAST MEDICAL HISTORY Diagnosis Date NEGATIVE MEDICAL HISTORY ALLERGIES Penicillins and Acetylcarnitine MEDICATIONS Current Outpatient Medications Medication Sig sertraline (ZOLOFT) 50 mg tablet Take 1 tablet by mouth once daily. (Patient not taking: Reported on 05/15/2023) fluticasone (FLONASE) 50 mcg/actuation nasal spray Use 2 Sprays in each nostril once daily. Rinse mouth after use. ibuprofen (MOTRIN) 800 mg tablet Take 1 tablet by mouth every 8 hours as needed for Pain. Take with food. No current facility-administered medications for this visit. Medications and allergies reviewed by this provider. SOCIAL HISTORY Social History Tobacco Use Smoking status: Never Smokeless tobacco: Never Vaping Use Vaping Use: Never used Substance Use Topics Drug use: Yes Comment: dustin rarely REVIEW OF SYSTEMS All other reviewed and negative other than HPI. OBJECTIVE: BP 155/88 Pulse 87 Resp 18 Wt (!) 247 kg (544 lb 9.6 oz) SpO2 97% BMI 80.20 kg/m? . Vital signs reviewed by this provider. APPEARANCE Well appearing, alert, in no acute distress, well-hydrated, well nourished. and Morbidly obese Component Latest Ref Rng AND Units 03/27/2023 WBC 3.70 - 11.00 k/uL 8.30 RBC 4.20 - 6.00 m/uL 4.67 Hemoglobin 13.0 - 17.0 g/dL 13.3 Hematocrit 39.0 - 51.0 % 42.7 MCV 80.0 - 100.0 fL 91.4 MCH 26.0 - 34.0 pg 28.5 MCHC 30.5 - 36.0 g/dL 31.1 RDW-CV 11.5 - 15.0 % 13.6 Platelet Count 150 - 400 k/uL 265 MPV 9.0 - 12.7 fL 11.5 Neut% % 60.9 Abs Neut (ANC) 1.45 - 7.50 k/uL 5.06 Lymph% % 29.8 Abs Lymph 1.00 - 4.00 k/uL 2.47 [place]% % 6.4 Abs [place] <0.87 k/uL 0.53 Eosin% % 2.0 Abs Eosin <0.46 k/uL 0.17 Baso% % 0.5 Abs Baso <0.11 k/uL 0.04 Immature Gran % % 0.4 IMMATURE GRANS (ABS) <0.10 k/uL 0.03 NRBC /100 WBC 0.0 Absolute nRBC <0.01 k/uL <0.01 DTYPE Auto Protein, Total 6.3 - 8.0 g/dL 6.8 Albumin 3.9 - 4.9 g/dL 4.0 Calcium 8.5 - 10.2 mg/dL 9.1 Bilirubin, Total 0.2 - 1.3 mg/dL 0.5 Alkaline Phosphatase 38 - 113 U/L 80 AST 14 - 40 U/L 21 ALT 10 - 54 U/L 28 Glucose 74 - 99 mg/dL 91 BUN 9 - 24 mg/dL 8 (L) Creatinine 0.73 - 1.22 mg/dL 0.70 (L) Sodium 136 - 144 mmol/L 139 Potassium 3.7 - 5.1 mmol/L 4.3 Chloride 97 - 105 mmol/L 102 CO2 22 - 30 mmol/L 24 Anion Gap 9 - 18 mmol/L 13 eGFR >=60 mL/min/1.73mA? 129 Cholesterol, Total <200 mg/dL 150 Triglyceride <150 mg/dL 147 HDL Cholesterol >39 mg/dL 33 (L) Non HDL Cholesterol <130 mg/dL 117 Fasting Time hrs 12 VLDL Cholesterol <30 mg/dL 29 TC:HDL Ratio <5.10 4.55 LDL Cholesterol <100 mg/dL 88 LDL:HDL Ratio <2.54 2.67 (H) TSH 0.270 - 4.200 mIU/L 3.880 Hepatitis B Vaccine(1 of 3 - 3-dose series) Never done Influenza Vaccine(1) due on 05/31/2023 Covid-19 Vaccine( season) due on 05/31/2023 Hepatitis C Screening due on 03/26/2024 HIV Screening due on 03/26/2024 DTaP,Tdap,Td Vaccine(2 - Td or Tdap) due on 05/31/2025 Depression Assessment Completed HPV Vaccine Aged Out ASSESSMENT/PLAN: 1. Morbid obesity with body mass index of 70 and over in adult (HCC) - ICD9: 278.01, V85.45, ICD10: E66.01, Z68.45 (primary diagnosis) Weight increasing - Behavioral intervention - discussed weight loss medications benefits and potential adverse reactions - he is going to check with insurance to see if they cover anything - discussed his best option maybe bariatric surgery if insurance will not cover - Lengthy discussion in office today regarding diet and exercise. Discussed use of small plate to eat meals from, drink 1 glass of water 10-15 minutes prior to eating meal, drink 8 glasses of water daily, eat fresh fruit and vegetable during meal first then lean protein such as grilled/baked chicken breast or fish, limit carbohydrate intake (less pasta, breads, rice and snack foods) as well as limiting sugars (desserts etc). Important to count / track your calories and exercise as well. 2. Elevated BP without diagnosis of hypertension - ICD9: 796.2, ICD10: R03.0 - Encouraged dietary sodium restriction/DASH diet - Recommended regular aerobic exercise. - Recommend home blood pressure monitoring, to bring results in on next visit - Encouraged avoidance of excessive alcohol intake - Discussed need and benefit for weight loss. - Recheck in 1 month, sooner if needed. - Goal of BP <140/90 Toby Chester APRN.KAZ Prescription instructions reviewed with patient as applicabl (more content not included)... [facility] 07-17-2023 Note HNO ID: [id number] Author: Nat Mallory APRN.KAZ Service: ? Author Type: Nurse Practitioner Type: Progress Notes Filed: 07/17/2023 6:23 PM Note Text: Patient came in with complaints of right lower abdominal pain and vomiting. Patient says its been about 2 days. Patient says he has a high pain tolerance so he is not sure how painful it is patient is extremely tender over the right lower quadrant when palpated. Due to the tenderness over the appendix and vomiting patient is being sent to the ER for full evaluation. She wants to take himself patient was okay with this care plan. [facility] 07-17-2023 History of Presen t illness Narrative Patient came in with complaints of right lower abdominal pain and vomiting. Patient says its been about 2 days. Patient says he has a high pain tolerance so he is not sure how painful it is patient is extremely tender over the right lower quadrant when palpated. Due to the tenderness over the appendix and vomiting patient is being sent to the ER for full evaluation. She wants to take himself patient was okay with this care plan. documented in this encounter [facility] 07-17-2023 Miscellaneous Notes Pt reports he would like referral sent to [facility]. Faxed cover sheet, consult to sleep medicine, order, and last OV note to fax # [phone]. Called and left a detailed voicemail notifying patient of providers message. Hospital phone number was left for patient to call back and let us know if he would like us to send information to [facility] sleep lab or [facility]. Maria D Christianson RN New order approved. Pt called in and reports he was supposed to go for a sleep test, but it was up in [place]. Pt states he would rather go here in [place]. Pt is asking if provider would put in an order for a consult to a sleep lab. He states he would either like to go to [facility] or [facility]. Please call Pt once order has been placed and information has been sent. documented in this encounter [facility] 06-12-2023 Miscellaneous Notes Patient has been contacted and rescheduled. Called and left another message asking patient to call back to reschedule 06/14/23 appointment. There are appointments on hold on 06/28/23 in the AM, or next available. Called and LVM letting patient know that we have canceled and need to reschedule their 06/14/23 appointment with . He will be out of the office in the afternoon. Patient can be rescheduled onto his CHELITA Song's schedule, or (if times still available) 's Lunch hour. There are also a few appointments on hold on 06/28/23 in the AM for these reschedules. Sent MyChart. documented in this encounter [facility] 05-24-2023 Note HNO ID: [id number] Author: Toby Chester APRN.CUT OFF SAWYER LOG Service: ? Author Type: Nurse Practitioner Type: Progress Notes Filed: 05/24/2023 12:25 PM Note Text: 05/24/2023 No chief complaint on file. SUBJECTIVE: This is a 27 year old that is here today for Above Complaints. Was taking Zoloft 50 mg but reports he started having thoughts of suicide so he stopped taking it. Feels better since stopping and has not had any other thoughts of self harm. Denies insomnia and HI Has been seeing counselor about once a month. It was recommended he see a psychiatrist by his psychologist. He has an appointment for this next week PHQ9: 17 VINCENT: 13 PAST MEDICAL HISTORY Diagnosis Date NEGATIVE MEDICAL HISTORY ALLERGIES Penicillins and Acetylcarnitine MEDICATIONS Current Outpatient Medications Medication Sig fluticasone (FLONASE) 50 mcg/actuation nasal spray Use 2 Sprays in each nostril once daily. Rinse mouth after use. sertraline (ZOLOFT) 50 mg tablet Take 1 tablet by mouth once daily. (Patient not taking: Reported on 05/15/2023) ibuprofen (MOTRIN) 800 mg tablet Take 1 tablet by mouth every 8 hours as needed for Pain. Take with food. No current facility-administered medications for this visit. Medications and allergies reviewed by this provider. SOCIAL HISTORY Social History Tobacco Use Smoking status: Never Smokeless tobacco: Never Vaping Use Vaping Use: Never used Substance Use Topics Drug use: Yes Comment: wallywilmer rarely REVIEW OF SYSTEMS All other reviewed and negative other than HPI. OBJECTIVE: BP 126/82 Pulse 89 Resp 18 Wt (!) 245.2 kg (540 lb 9.6 oz) SpO2 94% BMI 79.62 kg/m? . Vital signs reviewed by this provider. APPEARANCE Well appearing, alert, in no acute distress, well-hydrated, well nourished. PSYCH: Posture and motor behavior: normal posture and motor behavior Dress, grooming, personal hygiene: normal dress and grooming Facial expression: good eye contact Speech: normal speech Mood: cheerful Coherency and relevance of thought: normal thought processes Memory: normal memory HEPATITIS B(1 of 3 - 3-dose series) Never done DTAP,TDAP,TD(1 - Tdap) Never done COVID-19 VACCINE(4 - Moderna series) due on 11/17/2021 HEPATITIS C SCREENING due on 03/26/2024 HIV SCREENING due on 03/26/2024 INFLUENZA(1) due on 05/31/2023 DEPRESSION ASSESSMENT Completed HPV VACCINE Aged Out ASSESSMENT/PLAN: 1. Anxiety and depression - ICD9: 300.00, 311, ICD10: F41.9, F32.A - discussed starting different medication - patient would like to hold off and discuss with psychiatry - contracted for safety and has number for suicide hotline if he would need this and also can go to local ER if needed - follow-up as needed Toby Podlogkristian, PEDRO.CUT OFF SAWYER LOG Prescription instructions reviewed with patient as applicable. Patient advised if symptoms do not improve or if symptoms worsen sooner, to contact their primary care physician. Potential red flag symptoms discussed with the patient. Reviewed appropriate action plan to take if red flag symptoms occur. Patient agreeable to treatment plan. I spent a total of 20 minutes on the date of the service which included preparing to see the patient, [id number] patient care, completing clinical documentation, obtaining and/or reviewing separately obtained history, performing a medically appropriate examination, counseling and educating the patient/family/caregiver [facility] 05-24-2023 History of Presen t illness Narrative 05/24/2023 No chief complaint on file. SUBJECTIVE: This is a 27 year old that is here today for Above Complaints. Was taking Zoloft 50 mg but reports he started having thoughts of suicide so he stopped taking it. Feels better since stopping and has not had any other thoughts of self harm. Denies insomnia and HI Has been seeing counselor about once a month. It was recommended he see a psychiatrist by his psychologist. He has an appointment for this next week PHQ9: 17 VINCENT: 13 PAST MEDICAL HISTORY Diagnosis Date NEGATIVE MEDICAL HISTORY ALLERGIES Penicillins and Acetylcarnitine MEDICATIONS Current Outpatient Medications Medication Sig fluticasone (FLONASE) 50 mcg/actuation nasal spray Use 2 Sprays in each nostril once daily. Rinse mouth after use. sertraline (ZOLOFT) 50 mg tablet Take 1 tablet by mouth once daily. (Patient not taking: Reported on 05/15/2023) ibuprofen (MOTRIN) 800 mg tablet Take 1 tablet by mouth every 8 hours as needed for Pain. Take with food. No current facility-administered medications for this visit. Medications and allergies reviewed by this provider. SOCIAL HISTORY Social History Tobacco Use Smoking status: Never Smokeless tobacco: Never Vaping Use Vaping Use: Never used Substance Use Topics Drug use: Yes Comment: dustin rarely REVIEW OF SYSTEMS All other reviewed and negative other than HPI. OBJECTIVE: BP 126/82 Pulse 89 Resp 18 Wt (!) 245.2 kg (540 lb 9.6 oz) SpO2 94% BMI 79.62 kg/m . Vital signs reviewed by this provider. APPEARANCE Well appearing, alert, in no acute distress, well-hydrated, well nourished. PSYCH: Posture and motor behavior: normal posture and motor behavior Dress, grooming, personal hygiene: normal dress and grooming Facial expression: good eye contact Speech: normal speech Mood: cheerful Coherency and relevance of thought: normal thought processes Memory: normal memory HEPATITIS B(1 of 3 - 3-dose series) Never done DTAP,TDAP,TD(1 - Tdap) Never done COVID-19 VACCINE(4 - Moderna series) due on 11/17/2021 HEPATITIS C SCREENING due on 03/26/2024 HIV SCREENING due on 03/26/2024 INFLUENZA(1) due on 05/31/2023 DEPRESSION ASSESSMENT Completed HPV VACCINE Aged Out ASSESSMENT/PLAN: 1. Anxiety and depression - ICD9: 300.00, 311, ICD10: F41.9, F32.A - discussed starting different medication - patient would like to hold off and discuss with psychiatry - contracted for safety and has number for suicide hotline if he would need this and also can go to local ER if needed - follow-up as needed Toby Chester APRN.CNP Prescription instructions reviewed with patient as applicable. Patient advised if symptoms do not improve or if symptoms worsen sooner, to contact their primary care physician. Potential red flag symptoms discussed with the patient. Reviewed appropriate action plan to take if red flag symptoms occur. Patient agreeable to treatment plan. I spent a total of 20 minutes on the date of the service which included preparing to see the patient, [id number] patient care, completing clinical documentation, obtaining and/or reviewing separately obtained history, performing a medically appropriate examination, counseling and educating the patient/family/caregiver documented in this encounter [facility] 05-22-2023 Miscellaneous Notes Pt called and is notified of providers message and instructions. Pt voices understanding. Maria D Christianson, JESUS Please make sure he has number below which he can call if he has suicidal thoughts again or he can always go to ER or call 911 as well *If you ever experience a mental health crisis please call [phone] Toby Monge APRN.CNP Patient calling to say he has stopped taking Sertraline due on Friday 05/18 due to symptoms of worsening depression with suicidal thoughts. He is feeling a little better off the medication States he is still pretty depressed but no longer feeling suicidal . Patient requested appointment to discuss alternative medications. Scheduled 05/24 @ 1200 per his request. Keesha Sullivan, RN documented in this encounter [facility] 05-16-2023 Note HNO ID: [id number] Author: Nkechi Steele Service: ? Author Type: ? Type: Progress Notes Filed: 05/16/2023 1:59 PM Note Text: POPULATION HEALTH NAVIGATION OUTREACH Action/FYI 1st call, pt scheduled Patient Identified by Name and : YES, via phone Outreach Outcome/Action Spoke to patient / parent / legal guardian: Patient scheduled Did you use a PCP flex slot to schedule this appointment? No Reason for Outreach Care Gap or Scheduling/Wellness visits Payer: Payor: MMO / Plan: MMO MHS / Product Type: Indemnity / Care Gap Reviewed:: Specialty Scheduling Reminder: Reminder note to check Health Maintenance for items below Health Maintenance items due: HEPATITIS B(1 of 3 - 3-dose series) Never done DTAP,TDAP,TD(1 - Tdap) Never done COVID-19 VACCINE(4 - Moderna series) due on 11/17/2021 Navigation Signature: Nkechi Steele May 16, 2023 1:58 PM [facility] 05-16-2023 Note Patient Outreach (AC CC) TYRA SAGASTUME ([id number]) 1995 M Date Time Provider Department 05/16/23 PCP ([facility] During your visit today, we recorded the following information about you: Nkechi Steele 05/16/2023 1:59 PM Signed POPULATION HEALTH NAVIGATION OUTREACH Action/I 1st call, pt scheduled Patient Identified by Name and : YES, via phone Outreach Outcome/Action Spoke to patient / parent / legal guardian: Patient scheduled Did you use a PCP flex slot to schedule this appointment? No Reason for Outreach Care Gap or Scheduling/Wellness visits Payer: Payor: MMO / Plan: MMO MHS / Product Type: Indemnity / Care Gap Reviewed:: Specialty Scheduling Reminder: Reminder note to check Health Maintenance for items below Health Maintenance items due: HEPATITIS B(1 of 3 - 3-dose series) Never done DTAP,TDAP,TD(1 - Tdap) Never done COVID-19 VACCINE(4 - Moderna series) due on 11/17/2021 Navigation Signature: Nkechi Steele May 16, 2023 1:58 PM Allergies As of Date: 05/16/2023 Noted Allergy Reaction PENICILLINS 09/18/2005 4 - Hives ACETYLCARNITINE 11/06/2022 16 - Unknown Date Reviewed: 05/15/2023 Reviewed by: Carmen Douglas LPN - Fully Assessed Prescriptions as of 05/16/2023 - sertraline (ZOLOFT) 50 mg tablet Take 1 tablet by mouth once daily. - fluticasone (FLONASE) 50 mcg/actuation nasal spray Use 2 Sprays in each nostril once daily. Rinse mouth after use. - ibuprofen (MOTRIN) 800 mg tablet Take 1 tablet by mouth every 8 hours as needed for Pain. Take with food. Problem List As Of Date 05/16/2023 Noted Resolved Obesity, Class III, BMI 40-49.9 (morbid obesity*02/18/2018 Encounter Status:Closed by NKECHI STEELE on 05/16/23 [facility] 05-15-2023 Note HNO ID: [id number] Author: Bri Baptiste PA-C Service: ? Author Type: Physician Office Analyst Type: Progress Notes Filed: 05/15/2023 7:57 PM Note Text: This note was created using Fishidyriter. Subjective Tyra Sagastume is a 27 year old male. HPI Patient presents with the chief complaint of feeling feverish this morning. He states he woke up and had chills and really just did not feel well throughout the day. He had called off work and needed a work note for today. He states he feels much improved now. Denies cough or congestion. He does have chronic allergies and did use his Flonase today. No ear pain. No vomiting or diarrhea. No chest pain or abdominal pain. Denies urinary complaints. Patient also has a lump near his left shoulder that he has had for several years. He had fallen and had an accident in 2015 and since then has had a lump. He was told previously that it was a blood clot . He states it is starting to hurt so he wanted to see someone about it. No new injury . Review of Systems Constitutional: Positive for chills, fatigue and fever. HENT: Negative. Respiratory: Negative. Cardiovascular: Negative. Gastrointestinal: Negative. Musculoskeletal: Left shoulder lump All other systems reviewed and are negative. PAST MEDICAL HISTORY Diagnosis Date NEGATIVE MEDICAL HISTORY Current Outpatient Medications Medication Sig Dispense Refill fluticasone (FLONASE) 50 mcg/actuation nasal spray Use 2 Sprays in each nostril once daily. Rinse mouth after use. 11.1 mL 0 sertraline (ZOLOFT) 50 mg tablet Take 1 tablet by mouth once daily. (Patient not taking: Reported on 05/15/2023) 90 tablet 1 ibuprofen (MOTRIN) 800 mg tablet Take 1 tablet by mouth every 8 hours as needed for Pain. Take with food. 40 tablet 0 No current facility-administered medications for this visit. PAST SURGICAL HISTORY Procedure Laterality Date NONE FAMILY HISTORY Problem Relation Age of Onset other (htn) Father Coronary Artery Disease Maternal Grandmother Cancer Maternal Grandmother Soft tissue CA Cancer Paternal Grandmother Lung CA Diabetes Paternal Grandfather Coronary Artery Disease Paternal Grandfather Asthma Sister Social History Tobacco Use Smoking status: Never Smokeless tobacco: Never Vaping Use Vaping Use: Never used Substance Use Topics Drug use: Yes Comment: dustin rarely Objective BP 128/84 Pulse 95 Temp 37 ?C (98.6 ?F) (Tympanic) Resp 18 Wt (!) 245.8 kg (542 lb) SpO2 97% BMI 79.82 kg/m? Physical Exam Vitals reviewed. Constitutional: Appearance: Normal appearance. HENT: Head: Normocephalic and atraumatic. Right Ear: Tympanic membrane, ear canal and external ear normal. Left Ear: Tympanic membrane, ear canal and external ear normal. Nose: Nose normal. Mouth/Throat: Mouth: Mucous membranes are moist. Pharynx: Oropharynx is clear. Cardiovascular: Rate and Rhythm: Normal rate and regular rhythm. Heart sounds: Normal heart sounds. Pulmonary: Effort: Pulmonary effort is normal. Breath sounds: Normal breath sounds. Musculoskeletal: Arms: Cervical back: Neck supple. Comments: Has a large palpable lump in the left pectoralis region in the anterior shoulder. Some mild tenderness to palpation. No erythema of the skin overlying. Full range of motion of the shoulder. Skin: General: Skin is warm and dry. Findings: No rash. Neurological: Mental Status: He is alert. Assessment and Plan ASSESSMENT/PLAN: 1. Mass of shoulder region - ICD9: 719.61, ICD10: R22.30 (primary diagnosis) I will refer the patient to orthopedics, discussed depending on how deep this is or what it ends up being he may actually need to see general surgery but to start with orthopedics. Likely a hematoma from his injury that has may be calcified. - CONSULT TO ORTHOPAEDICS - CONSULT TO GENERAL SURGERY 2. Feels feverish - ICD9: 780.60, ICD10: R50.9 States he feels much improved now. He took a COVID test earlier today which was negative. Vital signs are stable. Does not appear toxic. Discussed if symptoms worsen to be seen again. He is agreeable. Bri Baptiste PA-C [facility] 04-26-2023 Note HNO ID: [id number] Author: Toby Chester APRN.CUT OFF SAWYER LOG Service: ? Author Type: Nurse Practitioner Type: Progress Notes Filed: 04/26/2023 11:57 AM Note Text: Chief Complaint Patient presents with: Medication Follow-up HPI Tyra Sagastume is a 27 year old male who presents here today for a medication follow up. Pt here today for a medication follow up. Recently established at last visit. VINCENT AND Depression: Is taking Zoloft 50 mg once daily. Pt state that he's been doing much better with use of medication. Feels positive, doesn't get as hangry and general uplift in his overall mood. States that when originally starting medication he felt jittery/amped and some drowsiness but this since has resolved. Went to counseling center on April 13 with follow-up on May 07 PHQ9: 11 VINCENT: 8 Past medical history, appointments, medications, allergies reviewed. Previous Medical History PAST MEDICAL HISTORY Diagnosis Date NEGATIVE MEDICAL HISTORY Previous Surgical History PAST SURGICAL HISTORY Procedure Laterality Date NONE Family History FAMILY HISTORY Problem Relation Age of Onset other (htn) Father Coronary Artery Disease Maternal Grandmother Cancer Maternal Grandmother Soft tissue CA Cancer Paternal Grandmother Lung CA Diabetes Paternal Grandfather Coronary Artery Disease Paternal Grandfather Asthma Sister Patient Allergies ALLERGIES Allergen Reactions Penicillins Hives Acetylcarnitine Unknown Current Medications Current Outpatient Medications on File Prior to Visit Medication Sig sertraline (ZOLOFT) 50 mg tablet Take 1 tablet by mouth once daily. fluticasone (FLONASE) 50 mcg/actuation nasal spray Use 2 Sprays in each nostril once daily. Rinse mouth after use. ibuprofen (MOTRIN) 800 mg tablet Take 1 tablet by mouth every 8 hours as needed for Pain. Take with food. No current facility-administered medications on file prior to visit. Social History Social History Tobacco Use Smoking status: Never Smokeless tobacco: Never Vaping Use Vaping Use: Never used Substance Use Topics Drug use: Yes Comment: dustin sigala Review of Symptoms REVIEW OF SYSTEMS See HPI EXAM: BP 132/84 (BP Site: Left Arm, BP Position: Sitting, BP Cuff Size: Regular Adult) Pulse 86 Resp 18 Wt (!) 241 kg (531 lb 6.4 oz) BMI 78.26 kg/m? General Appearance: Well appearing, alert, in no acute distress, well-hydrated, well nourished. PSYCH: Posture and motor behavior: normal posture and motor behavior Dress, grooming, personal hygiene: normal dress and grooming Facial expression: smiling and good eye contact Speech: normal speech Mood: cheerful Coherency and relevance of thought: normal thought processes Memory: normal memory Health Maintenance List HEPATITIS B(1 of 3 - 3-dose series) Never done DTAP,TDAP,TD(1 - Tdap) Never done COVID-19 VACCINE(4 - Moderna series) due on 11/17/2021 HEPATITIS C SCREENING due on 03/26/2024 HIV SCREENING due on 03/26/2024 INFLUENZA(1) due on 05/31/2023 DEPRESSION ASSESSMENT Completed HPV VACCINE Aged Out ASSESSMENT/PLAN: 1. Anxiety and depression - ICD9: 300.00, 311, ICD10: F41.9, F32.A - improved - happy on current dose - continue with counseling - SERTRALINE 50 MG TABLET - follow-up yearly and as needed Toby Podlogar, CENTRAL SUPPLY TECHNICIAN.CUT OFF SAWYER LOG Prescription instructions reviewed with patient as applicable. Patient advised if symptoms do not improve or if symptoms worsen sooner, to contact their primary care physician. Potential red flag symptoms discussed with the patient. Reviewed appropriate action plan to take if red flag symptoms occur. Patient agreeable to treatment plan. I spent a total of 20 minutes on the date of the service which included preparing to see the patient, [id number] patient care, completing clinical documentation, obtaining and/or reviewing separately obtained history, performing a medically appropriate examination, counseling and educating the patient/family/caregiver, and ordering medications, tests, or procedures. [facility] 04-26-2023 History of Presen t illness Narrative Chief Complaint Patient presents with: Medication Follow-up HPI Tyra Sagastume is a 27 year old male who presents here today for a medication follow up. Pt here today for a medication follow up. Recently established at last visit. VINCENT & Depression: Is taking Zoloft 50 mg once daily. Pt state that he's been doing much better with use of medication. Feels positive, doesn't get as hangry and general uplift in his overall mood. States that when originally starting medication he felt jittery/amped and some drowsiness but this since has resolved. Went to counseling center on April 13 with follow-up on May 07 PHQ9: 11 VINCENT: 8 Past medical history, appointments, medications, allergies reviewed. Previous Medical History PAST MEDICAL HISTORY Diagnosis Date NEGATIVE MEDICAL HISTORY Previous Surgical History PAST SURGICAL HISTORY Procedure Laterality Date NONE Family History FAMILY HISTORY Problem Relation Age of Onset other (htn) Father Coronary Artery Disease Maternal Grandmother Cancer Maternal Grandmother Soft tissue CA Cancer Paternal Grandmother Lung CA Diabetes Paternal Grandfather Coronary Artery Disease Paternal Grandfather Asthma Sister Patient Allergies ALLERGIES Allergen Reactions Penicillins Hives Acetylcarnitine Unknown Current Medications Current Outpatient Medications on File Prior to Visit Medication Sig sertraline (ZOLOFT) 50 mg tablet Take 1 tablet by mouth once daily. fluticasone (FLONASE) 50 mcg/actuation nasal spray Use 2 Sprays in each nostril once daily. Rinse mouth after use. ibuprofen (MOTRIN) 800 mg tablet Take 1 tablet by mouth every 8 hours as needed for Pain. Take with food. No current facility-administered medications on file prior to visit. Social History Social History Tobacco Use Smoking status: Never Smokeless tobacco: Never Vaping Use Vaping Use: Never used Substance Use Topics Drug use: Yes Comment: dustin rarely Review of Symptoms REVIEW OF SYSTEMS See HPI EXAM: BP 132/84 (BP Site: Left Arm, BP Position: Sitting, BP Cuff Size: Regular Adult) Pulse 86 Resp 18 Wt (!) 241 kg (531 lb 6.4 oz) BMI 78.26 kg/m General Appearance: Well appearing, alert, in no acute distress, well-hydrated, well nourished. PSYCH: Posture and motor behavior: normal posture and motor behavior Dress, grooming, personal hygiene: normal dress and grooming Facial expression: smiling and good eye contact Speech: normal speech Mood: cheerful Coherency and relevance of thought: normal thought processes Memory: normal memory Health Maintenance List HEPATITIS B(1 of 3 - 3-dose series) Never done DTAP,TDAP,TD(1 - Tdap) Never done COVID-19 VACCINE(4 - Moderna series) due on 11/17/2021 HEPATITIS C SCREENING due on 03/26/2024 HIV SCREENING due on 03/26/2024 INFLUENZA(1) due on 05/31/2023 DEPRESSION ASSESSMENT Completed HPV VACCINE Aged Out ASSESSMENT/PLAN: 1. Anxiety and depression - ICD9: 300.00, 311, ICD10: F41.9, F32.A - improved - happy on current dose - continue with counseling - SERTRALINE 50 MG TABLET - follow-up yearly and as needed Toby Chester APRN.CNP Prescription instructions reviewed with patient as applicable. Patient advised if symptoms do not improve or if symptoms worsen sooner, to contact their primary care physician. Potential red flag symptoms discussed with the patient. Reviewed appropriate action plan to take if red flag symptoms occur. Patient agreeable to treatment plan. I spent a total of 20 minutes on the date of the service which included preparing to see the patient, [id number] patient care, completing clinical documentation, obtaining and/or reviewing separately obtained history, performing a medically appropriate examination, counseling and educating the patient/family/caregiver, and ordering medications, tests, or procedures. documented in this encounter [facility] 04-05-2023 Miscellaneous Notes 2nd attempt left voice mail Called and left a detailed voicemail notifying patient of providers message. Left msg that [facility] would be able to do the study as well. Please call pt again to confirm he gets this scheduled. BMI 78 WT 529. Due to BMI an in lab sleep study is recommended instead of home sleep study. Will order and patient may call to schedule. Toby Chester APRN.KAZ documented in this encounter [facility] [place] 04-01-2023 Miscellaneous Notes Spoke with pt and information listed below given. Pt verbalizes understanding. Sunita Welsh LPN Patient telephoned and message left to call office back and ask for triage nurse for update. ARIELLE West APRN.CNP 03/29/2023 7:01 AM EDT Please call patient and let him know his HDL ( good cholesterol) is low- as we discussed work on diet and exercise which can help improve this. His Total cholesterol and LDL ( bad cholesterol) are great. The rest of his his blood work is in normal ranges. Toby Chester APRN.KAZ documented in this encounter [facility] 03-26-2023 Note HNO ID: [id number] Author: Toby Chester APRN.CNP Service: ? Author Type: Nurse Practitioner Type: Progress Notes Filed: 03/26/2023 11:45 AM Note Text: 03/26/2023 Patient presents with: Establish Care SUBJECTIVE: This is a 27 year old that is here today for Above Complaints. Admits to depressive symptoms. Has never been treated for depression or anxiety. Did see [facility] psychologist recently and has upcoming appointment with a counselor at the [facility]. Denies SI, HI or insomnia PHQ9: 17 VINCENT: 19 Admits to snoring and daytime fatigue. Reports father has sleep apnea Does not follow any specific diet or exercise routine. Past medical, surgical, family, social hx, medications, allergies and health maintenance reviewed and updated PAST MEDICAL HISTORY Diagnosis Date NEGATIVE MEDICAL HISTORY ALLERGIES Penicillins and Acetylcarnitine MEDICATIONS Current Outpatient Medications Medication Sig fluticasone (FLONASE) 50 mcg/actuation nasal spray Use 2 Sprays in each nostril once daily. Rinse mouth after use. ibuprofen (MOTRIN) 800 mg tablet Take 1 tablet by mouth every 8 hours as needed for Pain. Take with food. No current facility-administered medications for this visit. Medications and allergies reviewed by this provider. SOCIAL HISTORY Social History Tobacco Use Smoking status: Never Smokeless tobacco: Never Substance Use Topics Alcohol use: Yes Comment: social Drug use: No REVIEW OF SYSTEMS GENERAL: No weight loss, malaise or fevers HEENT: Negative for frequent or significant headaches, No changes in hearing or vision, no nose bleeds or other nasal problems NECK: Negative for lumps, goiter, pain and significant neck swelling RESPIRATORY: Negative for cough, hemoptysis, wheezing, COPD, dyspnea or shortness of breath CARDIOVASCULAR: Negative for chest pain, leg swelling, hypertension, CHF or palpitations GI: No nausea, vomiting, or diarrhea : No history of dysuria, frequency or incontinence MUSCULOSKELETAL: Negative for joint pain or swelling, back pain or muscle pain and low back pain at times and right ankle swells due to past injury SKIN: Negative for lesions, rash, and itching PSYCH: See HPI HEMATOLOGY/LYMPHOLOGY: Negative for prolonged bleeding, bruising easily or swollen nodes ENDOCRINE: Negative for cold or heat intolerance, polyuria, polydipsia and goiter NEURO: No history of headaches, syncope, paralysis, seizures or tremors All other reviewed and negative other than HPI. OBJECTIVE: BP 136/78 Pulse 98 Resp 18 Ht 175.5 cm (5' 9.09 ) Wt (!) 240.3 kg (529 lb 12.8 oz) SpO2 96% BMI 78.03 kg/m? . Vital signs reviewed by this provider. APPEARANCE Well appearing, alert, in no acute distress, well-hydrated, well nourished. and Morbidly obese NECK Supple, no adenopathy; thyroid symmetric, normal size HEART RRR with normal S1 and S2, no murmurs, no gallops, no JVD appreciated LUNG clear to auscultation. No wheezes, rhonchi or rales EXTREMITIES Extremities normal, No deformities, No skin discoloration, and No edema SKIN Skin color, texture, turgor normal, no suspicious rashes or lesions to exposed skin PSYCH: Posture and motor behavior: normal posture and motor behavior Dress, grooming, personal hygiene: normal dress and grooming Facial expression: good eye contact Speech: normal speech Mood: pleasant Coherency and relevance of thought: normal thought processes Memory: normal memory HEPATITIS B(1 of 3 - 3-dose series) Never done DTAP,TDAP,TD(1 - Tdap) Never done COVID-19 VACCINE(4 - Booster for Moderna series) due on 11/17/2021 DEPRESSION ASSESSMENT Never done HEPATITIS C SCREENING due on 03/26/2024 HIV SCREENING due on 03/26/2024 INFLUENZA(Season Ended) due on 05/31/2023 ASSESSMENT/PLAN: 1. Encounter for medical examination to establish care - ICD9: V70.9, ICD10: Z00.00 (primary diagnosis) - Counseled on healthy diet and regular exercise - Discussed need for and benefit of weight loss. BMI 78.02 kg/(m2) - Depression screening tool completed and reviewed with patient. Based on score and interview, patient is at risk for depression and recommended starting medication. - Follow up for annual exam in one year - TSH BLD - CBC + DIFF - COMP METABOLIC PANEL 2. Screening for cholesterol level - ICD9: V77.91, ICD10: Z13.220 - LIPID PANEL BASIC 3. Anxiety and depression - ICD9: 300.00, 311, ICD10: F41.9, F32.A - Handout on depression/anxiety form UptoDate given - Option of Medication use discussed - Risks/benefits of SSRIs - Common side effects - Sleep Hygeine - advised counseling to improve management of stressors - follow up in 4 weeks - Instructed patient to contact office or [id number] after-hours promptly should condition worsen or any new symptoms appear. - Counseling Center [facility] and after hours crisis line - Ever (more content not included)... [facility] 03-26-2023 Instructions Toby Chester APRN.CUT OFF SAWYER LOG - 03/26/2023 11:41 AM EDT GET HELP If you have symptoms of clinical depression, you can get help by doing one or more of the followin. Please talk with your doctor. 2. If you are already in treatment, make sure you contact and update your doctor or therapist. 3. Call the [facility] [place] Department of Psychiatry & Psychology at [phone] (select Option 1) or [phone] (select Option 1) 4. Review additional options for care based on patient or provider preference: Central/Multiple Locations: [facility]: Multiple Locations - [phone] [facility]: [address] [facility]- [phone] Eric Cain: [address] [facility]- [phone] [facility]: [address] [facility] - [phone] [facility]: [address] [facility] - [phone] [place] [facility]: [facility]0 [facility] - [phone] (Medicaid only) [facility]: Multiple Locations - [phone] (Medicaid only) [facility]: Multiple Locations - [phone] Danielle Trejo [facility] - Multiple Locations - [phone] (Medicaid only) [facility] Multiple Locations- [phone] [facility]ants: Multiple Locations - [phone] [facility]: Multiple Locations - [phone] [facility] Locations: [facility]: [address] [facility] - [phone] Binta Fernandez PhD and Associates: [address] [facility] - [phone] [facility]: [address] [place] [address] - [phone] [place] [id number] [facility] [address] Babcock - [phone] Monroe Adams MD: [address] [place] [place]- [phone] [facility] [address], [place] - [phone] [facility]: [address] - [phone]; 24 hotline - [phone] [facility], [address] [facility] - [phone] [place] Locations: Tracy Boland MD [facility] Inc: [address] [address], [place] - [phone] Binta Fernandez PhD [facility] Associates: [address] [facility] - [phone] [facility] Services: [address] [facility] - [phone] [facility] [address] [facility] - [phone] [facility], [address] [facility], [address] - [phone] [facility] - [address] [facility] - [phone] [facility]: [address] [facility] [phone] [place] Locations: [facility] [address] [facility] - [phone] [facility] L Soham Wilson, [facility]. - [phone] [facility] Psychiatry: 1 [facility]- [phone] [facility]: [address] [facility],- [phone] [facility] Behavior[facility] Health - [address] [place] - [phone] For additional resources and information please call 2-1-1 or review the website: [email or web address] If you are feeling suicidal, please call Mobile Crisis, , or the National Suicide Hotline , Call 561, or go to your nearest emergency room documented in this encounter [facility] 03-26-2023 History of Presen t illness Narrative 03/26/2023 Patient presents with: Establish Care SUBJECTIVE: This is a 27 year old that is here today for Above Complaints. Admits to depressive symptoms. Has never been treated for depression or anxiety. Did see [facility] psychologist recently and has upcoming appointment with a counselor at the [facility]. Denies SI, HI or insomnia PHQ9: 17 VINCENT: 19 Admits to snoring and daytime fatigue. Reports father has sleep apnea Does not follow any specific diet or exercise routine. Past medical, surgical, family, social hx, medications, allergies and health maintenance reviewed and updated PAST MEDICAL HISTORY Diagnosis Date NEGATIVE MEDICAL HISTORY ALLERGIES Penicillins and Acetylcarnitine MEDICATIONS Current Outpatient Medications Medication Sig fluticasone (FLONASE) 50 mcg/actuation nasal spray Use 2 Sprays in each nostril once daily. Rinse mouth after use. ibuprofen (MOTRIN) 800 mg tablet Take 1 tablet by mouth every 8 hours as needed for Pain. Take with food. No current facility-administered medications for this visit. Medications and allergies reviewed by this provider. SOCIAL HISTORY Social History Tobacco Use Smoking status: Never Smokeless tobacco: Never Substance Use Topics Alcohol use: Yes Comment: social Drug use: No REVIEW OF SYSTEMS GENERAL: No weight loss, malaise or fevers HEENT: Negative for frequent or significant headaches, No changes in hearing or vision, no nose bleeds or other nasal problems NECK: Negative for lumps, goiter, pain and significant neck swelling RESPIRATORY: Negative for cough, hemoptysis, wheezing, COPD, dyspnea or shortness of breath CARDIOVASCULAR: Negative for chest pain, leg swelling, hypertension, CHF or palpitations GI: No nausea, vomiting, or diarrhea : No history of dysuria, frequency or incontinence MUSCULOSKELETAL: Negative for joint pain or swelling, back pain or muscle pain and low back pain at times and right ankle swells due to past injury SKIN: Negative for lesions, rash, and itching PSYCH: See HPI HEMATOLOGY/LYMPHOLOGY: Negative for prolonged bleeding, bruising easily or swollen nodes ENDOCRINE: Negative for cold or heat intolerance, polyuria, polydipsia and goiter NEURO: No history of headaches, syncope, paralysis, seizures or tremors All other reviewed and negative other than HPI. OBJECTIVE: BP 136/78 Pulse 98 Resp 18 Ht 175.5 cm (5' 9.09 ) Wt (!) 240.3 kg (529 lb 12.8 oz) SpO2 96% BMI 78.03 kg/m . Vital signs reviewed by this provider. APPEARANCE Well appearing, alert, in no acute distress, well-hydrated, well nourished. and Morbidly obese NECK Supple, no adenopathy; thyroid symmetric, normal size HEART RRR with normal S1 and S2, no murmurs, no gallops, no JVD appreciated LUNG clear to auscultation. No wheezes, rhonchi or rales EXTREMITIES Extremities normal, No deformities, No skin discoloration, and No edema SKIN Skin color, texture, turgor normal, no suspicious rashes or lesions to exposed skin PSYCH: Posture and motor behavior: normal posture and motor behavior Dress, grooming, personal hygiene: normal dress and grooming Facial expression: good eye contact Speech: normal speech Mood: pleasant Coherency and relevance of thought: normal thought processes Memory: normal memory HEPATITIS B(1 of 3 - 3-dose series) Never done DTAP,TDAP,TD(1 - Tdap) Never done COVID-19 VACCINE(4 - Booster for Moderna series) due on 11/17/2021 DEPRESSION ASSESSMENT Never done HEPATITIS C SCREENING due on 03/26/2024 HIV SCREENING due on 03/26/2024 INFLUENZA(Season Ended) due on 05/31/2023 ASSESSMENT/PLAN: 1. Encounter for medical examination to establish care - ICD9: V70.9, ICD10: Z00.00 (primary diagnosis) - Counseled on healthy diet and regular exercise - Discussed need for and benefit of weight loss. BMI 78.02 kg/(m^2) - Depression screening tool completed and reviewed with patient. Based on score and interview, patient is at risk for depression and recommended starting medication. - Follow up for annual exam in one year - TSH BLD - CBC + DIFF - COMP METABOLIC PANEL 2. Screening for cholesterol level - ICD9: V77.91, ICD10: Z13.220 - LIPID PANEL BASIC 3. Anxiety and depression - ICD9: 300.00, 311, ICD10: F41.9, F32.A - Handout on depression/anxiety form UptoDate given - Option of Medication use discussed - Risks/benefits of SSRIs - Common side effects - Sleep Hygeine - advised counseling to improve management of stressors - follow up in 4 weeks - Instructed patient to contact office or [id number]-mq-ejug after-hours promptly should condition worsen or any new symptoms appear. - [facility] and after hours crisis line - [employer]wis[facility] mitch phone number or - DEPRESSION SCREENING/ASSESSMENT - SERTRALINE 50 MG TABLET - follow-up with counseling as scheduled - follow-up with PCP in 4 weeks, sooner if needed 4. Snoring - ICD9: 786.09, ICD10: R06.83 - HOME SLEEP APNEA TEST (HSAT) 5. Daytime somnolence - ICD9: 780.54, ICD10: R40.0 - HOME SLEEP APNEA TEST (HSAT) 6. Morbid obesity with body mass index of 70 and over in adult (HCC) - ICD9: 278.01, V85.45, ICD10: E66.01, Z68.45 Weight increasing - Behavioral intervention - Lengthy discussion in office today regarding diet and exercise. Discussed use of small plate to eat meals from, drink 1 glass of water 10-15 minutes prior to eating meal, drink 8 glasses of water daily, eat fresh fruit and vegetable during meal first then lean protein such as grilled/baked chicken breast or fish, limit carbohydrate intake (less pasta, breads, rice and snack foods) as well as limiting sugars (desserts etc). Important to count / track your calories and exercise as well. - discussed with patient if interested in weight loss medication to check with insurance for coverage or we can refer to bariatrics if he is interested in either Toby Chester, PEDRO.CUT OFF SAWYER LOG Prescription instructions reviewed with patient as applicable. Patient advised if symptoms do not improve or if symptoms worsen sooner, to contact their primary care physician. Potential red flag symptoms discussed with the patient. Reviewed appropriate action plan to take if red flag symptoms occur. Patient agreeable to treatment plan. I spent a total of 30 minutes on the date of the service which included preparing to see the patient, [id number] patient care, completing clinical documentation, obtaining and/or reviewing separately obtained history, performing a medically appropriate examination, counseling and educating the patient/family/caregiver, and ordering medications, tests, or procedures. documented in this encounter [facility] 11-16-2022 Note HNO ID: [id number] Author: Elder Bai, PhD Service: ? Author Type: Psychologist Type: Progress Notes Filed: 11/16/2022 11:27 AM Note Text: [facility] Progress Note Tyra Sagastume 11/16/2022 [id number] Provider: Elder Bai, PhD CPT Code: 97528 Psychiatric diagnostic evaluation Time: Approximately 50 minutes was spent in therapy. Setting: Patient seen in person Parties Present: Patient Patient Presentation/Concerns: INITIAL VISIT pt grew up with younger sister and nice laid back parents in isolated small area w no nearby peers.. felt isolated and poor crappy looking back mom pushed college .. 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 about blood relatives Lives on his own likes video games that challenge has several friends plays w on line and some face to face likes painting miniatures GOAL: would like to do better w Anxiety and Depression and learn to be more at ease socially PLAN: discussed how to wonder about others vs feel like he has to create a conversation ALSO... wonders if he is in the Spectrum Mental Status: Mood: variable, anxious Affect: mood-congruent Thoughts/Associations:goal directed Suicidal/Homicidal Ideation: None expressed or evidenced Other Observations: None Therapy Focus Self-care, Stress management, Mood/affect regulation, Interpersonal, and Self-esteem MEDICATIONS: Per medical record: Current Outpatient Medications Medication Sig fluticasone (FLONASE) 50 mcg/actuation nasal spray Use 2 Sprays in each nostril once daily. Rinse mouth after use. (Patient not taking: Reported on 07/12/2022) ibuprofen (MOTRIN) 800 mg tablet Take 1 tablet by mouth every 8 hours as needed for Pain. Take with food. No current facility-administered medications for this visit. Psychiatric Medication Issues: see med record DIAGNOSIS: Levasy I: Anxiety and Depression Over weight occupational exploration r/o Autism Levasy II: deferred Levasy III: see med record Levasy IV: mood weight Levasy V:51-60 Treatment Modality/Interventions: Cognitive Behavioral Reassurance/Supportive Insight oriented Problem solving Communication skills training Goal setting Treatment planning Psychoeducation TREATMENT ASSESSMENT/PROGRESS: . Progressing satisfactorily. TREATMENT PLAN/GOALS: Continue in therapy focusing on self-care, interpersonal relationships, improving communication, affect management, anxiety management, self-esteem, and weight. Next appointment: as scheduled Elder Bai, PhD [facility] 11-06-2022 Note HNO ID: [id number] Author: Bethany Britt APRN.CUT OFF SAWYER LOG Service: ? Author Type: Nurse Practitioner Type: Progress Notes Filed: 11/06/2022 7:46 PM Note Text: Subjective Abdominal Pain Pertinent negatives include fever, diarrhea, nausea, vomiting and constipation. Tyra Sagastume is a 27 year old male who presents with one episode of blood in his stool today. He denies any history of constipation or hemorrhoids. Has not had any rectal pain. He states the blood was bright red and just a small amount coming from each individual piece of stool. No clots. He admits to a recent change in diet-he is trying to eat more chicken and rice and less junk food. Review of Systems Constitutional: Negative for chills and fever. Respiratory: Negative for shortness of breath. Cardiovascular: Negative for chest pain. Gastrointestinal: Positive for abdominal pain and blood in stool. Negative for constipation, diarrhea, nausea and vomiting. Genitourinary: Negative. Neurological: Negative for dizziness and weakness. BP 144/90 Pulse 120 Temp 37.1 ?C (98.7 ?F) (Tympanic) Resp 18 SpO2 97% PAST MEDICAL HISTORY Diagnosis Date NEGATIVE MEDICAL HISTORY PAST SURGICAL HISTORY Procedure Laterality Date NONE ALLERGIES Penicillins and Acetylcarnitine MEDICATIONS ibuprofen (MOTRIN) 800 mg tablet Take 1 tablet by mouth every 8 hours as needed for Pain. Take with food. fluticasone (FLONASE) 50 mcg/actuation nasal spray Use 2 Sprays in each nostril once daily. Rinse mouth after use. (Patient not taking: Reported on 07/12/2022) FAMILY HISTORY Problem Relation Age of Onset None Mother None Father Diabetes Paternal Grandfather Coronary Artery Disease Paternal Grandfather Coronary Artery Disease Maternal Grandmother Cancer Maternal Grandmother Soft tissue CA Cancer Paternal Grandmother Lung CA Social History Tobacco Use Smoking status: Never Smokeless tobacco: Never Substance Use Topics Alcohol use: Yes Comment: social Drug use: No Objective Physical Exam Vitals and nursing note reviewed. Constitutional: Appearance: He is obese. Cardiovascular: Rate and Rhythm: Normal rate. Pulmonary: Effort: Pulmonary effort is normal. Abdominal: General: Bowel sounds are normal. Palpations: Abdomen is soft. There is no mass. Tenderness: There is no abdominal tenderness. There is no right CVA tenderness, left CVA tenderness, guarding or rebound. Hernia: No hernia is present. Skin: General: Skin is warm and dry. Findings: No erythema or rash. Neurological: Mental Status: He is alert. ASSESSMENT/PLAN: 1. Blood in stool - ICD9: 578.1, ICD10: K92.1 - unknown cause. - Patient is fairly anxious about this so will CBC to check red blood count. - if continuing or worsening, see PCP for further evaluation. - Follow-up with your PCP in 3-5 days if symptoms have not improved or sooner if symptoms worsen - Discussed red flags and need for immediate medical evaluation if any occur. - Discussed supportive care treatment with fluids, rest and analgesia. - Discussed expected course of illness Bethany Britt APRN.[facility] 11-06-2022 History of Presen t illness Narrative Subjective Abdominal Pain Pertinent negatives include fever, diarrhea, nausea, vomiting and constipation. Tyra Sagastume is a 27 year old male who presents with one episode of blood in his stool today. He denies any history of constipation or hemorrhoids. Has not had any rectal pain. He states the blood was bright red and just a small amount coming from each individual piece of stool. No clots. He admits to a recent change in diet-he is trying to eat more chicken and rice and less junk food. Review of Systems Constitutional: Negative for chills and fever. Respiratory: Negative for shortness of breath. Cardiovascular: Negative for chest pain. Gastrointestinal: Positive for abdominal pain and blood in stool. Negative for constipation, diarrhea, nausea and vomiting. Genitourinary: Negative. Neurological: Negative for dizziness and weakness. BP 144/90 Pulse 120 Temp 37.1 C (98.7 F) (Tympanic) Resp 18 SpO2 97% PAST MEDICAL HISTORY Diagnosis Date NEGATIVE MEDICAL HISTORY PAST SURGICAL HISTORY Procedure Laterality Date NONE ALLERGIES Penicillins and Acetylcarnitine MEDICATIONS ibuprofen (MOTRIN) 800 mg tablet Take 1 tablet by mouth every 8 hours as needed for Pain. Take with food. fluticasone (FLONASE) 50 mcg/actuation nasal spray Use 2 Sprays in each nostril once daily. Rinse mouth after use. (Patient not taking: Reported on 07/12/2022) FAMILY HISTORY Problem Relation Age of Onset None Mother None Father Diabetes Paternal Grandfather Coronary Artery Disease Paternal Grandfather Coronary Artery Disease Maternal Grandmother Cancer Maternal Grandmother Soft tissue CA Cancer Paternal Grandmother Lung CA Social History Tobacco Use Smoking status: Never Smokeless tobacco: Never Substance Use Topics Alcohol use: Yes Comment: social Drug use: No Objective Physical Exam Vitals and nursing note reviewed. Constitutional: Appearance: He is obese. Cardiovascular: Rate and Rhythm: Normal rate. Pulmonary: Effort: Pulmonary effort is normal. Abdominal: General: Bowel sounds are normal. Palpations: Abdomen is soft. There is no mass. Tenderness: There is no abdominal tenderness. There is no right CVA tenderness, left CVA tenderness, guarding or rebound. Hernia: No hernia is present. Skin: General: Skin is warm and dry. Findings: No erythema or rash. Neurological: Mental Status: He is alert. ASSESSMENT/PLAN: 1. Blood in stool - ICD9: 578.1, ICD10: K92.1 - unknown cause. - Patient is fairly anxious about this so will CBC to check red blood count. - if continuing or worsening, see PCP for further evaluation. - Follow-up with your PCP in 3-5 days if symptoms have not improved or sooner if symptoms worsen - Discussed red flags and need for immediate medical evaluation if any occur. - Discussed supportive care treatment with fluids, rest and analgesia. - Discussed expected course of illness Bethany Britt APRN.CUT OFF SAWYER LOG documented in this encounter [facility] 11-06-2022 Instructions Bethany Britt APRN.CNP - 11/06/2022 7:34 PM EST ASSESSMENT/PLAN: 1. Blood in stool - ICD9: 578.1, ICD10: K92.1 - unknown cause - CBC to check red blood count. - if continuing or worsening, see PCP for further evaluation. - Follow-up with your PCP in 3-5 days if symptoms have not improved or sooner if symptoms worsen - Discussed red flags and need for immediate medical evaluation if any occur. - Discussed supportive care treatment with fluids, rest and analgesia. - Discussed expected course of illness Bethany Britt APRN.CNP documented in this encounter [facility] 02-11-2022 Instructions Kirstin Palmer APRN.CNP - 02/11/2022 2:29 PM EDT Images from the original note were not included. Adult Sinusitis Patient Education What is Sinusitis? Sinusitis [teei-voq-ygtk-tis] is inflammation of the sinuses or swelling of the lining of the sinus cavity or nose. During an infection the sinuses become blocked with fluid causing swelling of the lining of the sinuses. Symptoms: (viral and bacterial infections) Stuffy nose Runny nose Postnasal drip Fever Toothache Headache Tiredness Cough Sore throat Face and head pressure and or pain Common causes: 98% of sinus infections are viral caused by viruses. Risk Factors of Sinusitis Include: Allergies, air pollution, indoor humidity and outdoor temperature changes, andstructural changes in the nose may contribute to sinus pain, pressure and congestion. When to get help? Temperature greater than 100.4 F Symptoms lasting more than 10 days or worsening symptoms greater than 7-10 days. If you do not improve or worsen after a course of antibiotics, you should be re-examined. Diagnosis and Treatment: Your healthcare provider will ask a number of questions about your symptoms and how long they have occurred. If symptoms of sinusitis persist greater than 10 days, it is possible you have a bacterial sinus infection and an antibiotic is prescribed. If it is viral, antibiotics will not help. You may be instructed to take lver-jrc-ijhoyzv medications for symptoms. including fever reducers acetaminophen or ibuprofen, nasal saline spray, cough and cold preparations and decongestants as prescribed by the physician, nurse practitioner or physician pastry assistant. Self-Care and Prevention: Rest Fluids for hydration Good hand washing Humidifier Avoid smoking and exposure to second hand smoke Avoid sick contacts documented in this encounter [facility] 02-11-2022 History of Presen t illness Narrative This note was created using [employer]. Subjective Tyra Sagastume is a 26 year old male. 26 year old male with PMH morbid obesity presents with complaints of head congestion Acute onset today +headache +sinus congestion Denies cough or congestion. Denies accompanying URI sx. Denies fever or chills. Denies SOB or dyspnea. Denies body aches or fatigue States I need a work note. The history is provided by the patient. No specialized language instructor was used. Sinus Problem This is a new problem. The current episode started today. The problem occurs constantly. The problem has been unchanged. Associated symptoms include congestion and headaches. Pertinent negatives include no abdominal pain, anorexia, arthralgias, change in bowel habit, chest pain, chills, coughing, diaphoresis, fatigue, fever, joint swelling, myalgias, nausea, neck pain, numbness, rash, sore throat, swollen glands, urinary symptoms, vertigo, visual change, vomiting or weakness. Nothing aggravates the symptoms. He has tried nothing for the symptoms. The treatment provided no relief. PAST MEDICAL HISTORY Diagnosis Date NEGATIVE MEDICAL HISTORY PAST SURGICAL HISTORY Procedure Laterality Date NONE ALLERGIES Penicillins MEDICATIONS ibuprofen (MOTRIN) 800 mg tablet Take 1 tablet by mouth every 8 hours as needed for Pain. Take with food. fluticasone (FLONASE) 50 mcg/actuation nasal spray Use 2 Sprays in each nostril once daily. Rinse mouth after use. FAMILY HISTORY Problem Relation Age of Onset None Mother None Father Diabetes Paternal Grandfather Coronary Artery Disease Paternal Grandfather Coronary Artery Disease Maternal Grandmother Cancer Maternal Grandmother Soft tissue CA Cancer Paternal Grandmother Lung CA Social History Tobacco Use Smoking status: Never Smoker Smokeless tobacco: Never Used Substance Use Topics Alcohol use: No Drug use: No Review of Systems Constitutional: Negative for chills, diaphoresis, fatigue and fever. HENT: Positive for congestion, postnasal drip, rhinorrhea, sinus pressure and sinus pain. Negative for sore throat. Eyes: Negative for photophobia, pain, discharge, redness, itching and visual disturbance. Respiratory: Negative for apnea, cough, choking and chest tightness. Cardiovascular: Negative for chest pain, palpitations and leg swelling. Gastrointestinal: Negative for abdominal pain, anorexia, change in bowel habit, nausea and vomiting. Musculoskeletal: Negative for arthralgias, joint swelling, myalgias and neck pain. Skin: Negative for color change, pallor and rash. Allergic/Immunologic: Positive for environmental allergies. Negative for food allergies and immunocompromised state. Neurological: Positive for headaches. Negative for dizziness, vertigo, facial asymmetry, weakness and numbness. Hematological: Negative for adenopathy. Does not bruise/bleed easily. Psychiatric/Behavioral: Negative for agitation and behavioral problems. Objective BP 134/86 Pulse 104 Temp 36.9 C (98.5 F) Resp 18 Wt (!) 219.1 kg (483 lb) SpO2 98% BMI 70.30 kg/m Physical Exam Vitals and nursing note reviewed. Constitutional: General: He is not in acute distress. Appearance: He is obese. He is not ill-appearing, toxic-appearing or diaphoretic. Comments: Morbidly obese HENT: Head: Normocephalic and atraumatic. Right Ear: External ear normal. Left Ear: External ear normal. Nose: Nose normal. No congestion or rhinorrhea. Mouth/Throat: Mouth: Mucous membranes are moist. Pharynx: Oropharynx is clear. No oropharyngeal exudate or posterior oropharyngeal erythema. Eyes: General: Right eye: No discharge. Left eye: No discharge. Extraocular Movements: Extraocular movements intact. Conjunctiva/sclera: Conjunctivae normal. Pupils: Pupils are equal, round, and reactive to light. Cardiovascular: Rate and Rhythm: Normal rate and regular rhythm. Pulses: Normal pulses. Heart sounds: Normal heart sounds. No murmur heard. No friction rub. No gallop. Pulmonary: Effort: Pulmonary effort is normal. No respiratory distress. Breath sounds: Normal breath sounds. No stridor. No wheezing, rhonchi or rales. Chest: Chest wall: No tenderness. Abdominal: General: Abdomen is flat. There is no distension. Palpations: Abdomen is soft. There is no mass. Tenderness: There is no abdominal tenderness. There is no guarding or rebound. Hernia: No hernia is present. Musculoskeletal: General: No swelling, tenderness, deformity or signs of injury. Normal range of motion. Cervical back: Normal range of motion and neck supple. No rigidity or tenderness. Right lower leg: No edema. Left lower leg: No edema. Lymphadenopathy: Cervical: No cervical adenopathy. Skin: General: Skin is warm and dry. Capillary Refill: Capillary refill takes less than 2 seconds. Coloration: Skin is not jaundiced or pale. Findings: No bruising, lesion or rash. Neurological: General: No focal deficit present. Mental Status: He is alert and oriented to person, place, and time. Cranial Nerves: No cranial nerve deficit. Sensory: No sensory deficit. Motor: No weakness. Coordination: Coordination normal. Gait: Gait normal. Deep Tendon Reflexes: Reflexes normal. Psychiatric: Mood and Affect: Mood normal. Behavior: Behavior normal. Thought Content: Thought content normal. Assessment and Plan ASSESSMENT/PLAN: 1. Acute sinusitis, recurrence not specified, unspecified location - ICD9: 461.9, ICD10: J01.90 Woke up today with congestion and sinus pressure No red flags Well appearing - The patient should also be given OTC cough and cold meds as needed, nasal saline gtts and suction prn and RX Flonase for the first 5-7 days of treatment. - Supportive care with plenty of fluids, rest, and analgesia prn. Declines COVID testing. - Follow up in 3-5 days if symptoms persist or worsen. - Work note provided Kirstin Palmer APRN.CNP documented in this encounter [facility] Diagnosis Blood in stool- Primary [facility] Diagnosis Encounter for medical examination to establish care- Primary Screening for cholesterol level Screening for lipoid disorders Anxiety and depression Dysthymic disorder Snoring Other dyspnea and respiratory abnormality Daytime somnolence Hypersomnia, unspecified Morbid obesity with body mass index of 70 and over in adult (HCC) Morbid obesity [facility] Diagnosis Snoring- Primary Other dyspnea and respiratory abnormality Daytime somnolence Hypersomnia, unspecified Morbid obesity with body mass index of 70 and over in adult (HCC) Morbid obesity [facility]* Diagnosis Anxiety and depression Dysthymic disorder [facility] Diagnosis Pain- Primary Generalized pain documented in this encounter [facility] note* Diagnosis Chronic left shoulder pain- Primary Pain in joint, shoulder region [facility]* Diagnosis Anxiety and depression- Primary Dysthymic disorder [facility] Diagnosis Chronic left shoulder pain- Primary Pain in joint, shoulder region [facility]* Diagnosis Snoring- Primary Other dyspnea and respiratory abnormality Obesity, Class III, BMI 40-49.9 (morbid obesity) (HCC) Morbid obesity Daytime somnolence Hypersomnia, unspecified documented in this encounter [facility] note* Diagnosis Right lower quadrant abdominal pain- Primary Abdominal pain, right lower quadrant documented in this encounter [facility] note* Diagnosis Benign essential HTN- Primary Essential hypertension, benign Class 3 severe obesity without serious comorbidity with body mass index (BMI) greater than or equal to 70 in adult, unspecified obesity type (HCC) ERICA (obstructive sleep apnea) Obstructive sleep apnea (adult) (pediatric) documented in this encounter [facility] note* Diagnosis Viral illness- Primary Unspecified viral infection, in conditions classified elsewhere and of unspecified site documented in this encounter [facility] note* Diagnosis Benign essential HTN- Primary Essential hypertension, benign Encounter for immunization Need for other specified prophylactic vaccination against single bacterial disease documented in this encounter [facility] for referral (narrative)* Diagnostic Procedure Only (Routine) - Pending Review Specialty Diagnoses / Procedures Referred By Edwin thompson Referred To [facility] Diagnoses Snoring Daytime somnolence Procedures HOME SLEEP APNEA TEST (HSAT) SLEEP STD AIRFLOW HRT RATE&O2 SAT EFFORT Toby Anthony APRN.CUT OFF SAWYER LOG [address] [place] [address] [facility] [address] [place] [id number] Referral ID Status Reason Start Date Expiration Date Visits Requested Visits Authorized [id number] Pending Review Auto-Generat ed Referral 03/26/2023 03/25/2024 1 1 [facility] for referral (narrative)* Diagnostic Procedure Only (Routine) - Authorized Specialty Diagnoses / Procedures Referred By Contac t Referred To Contact XR IMAGING Diagnoses Pain Procedures XR SHOULDER GENERAL 3V OR MORE AP/TRUE AP/OTHER LEFT RADEX SHOULDER COMPLETE MINIMUM 2 VIEWS Elbert Braun MD [address] [facility] [facility] [address] [place] [address] Xr Imaging [facility] Referral ID Status Reason Start Date Expiration Date Visits Requested Visits Authorized [id number] Authorized Auto-Generat ed Referral 05/16/2023 06/14/2024 1 1 [facility] for referral (narrative)* Diagnostic Procedure Only (Routine) - Authorized Specialty Diagnoses / Procedures Referred By Contac t Referred To Contact XR IMAGING Diagnoses Chronic left shoulder pain Procedures XR SHOULDER GENERAL 3V OR MORE AP/TRUE AP/OTHER LEFT RADEX SHOULDER COMPLETE MINIMUM 2 VIEWS Nely Song PA-C [address] [place] [address] Xr Imaging [facility] Referral ID Status Reason Start Date Expiration Date Visits Requested Visits Authorized [id number] Authorized Auto-Generat ed Referral 06/25/2023 07/24/2024 1 1 T [facility] Summary Purpose Family History No Family History Records FoundNo Family History Records Found Advance Directives No Advanced Directives Records FoundNo Advanced Directives Records Found Reason for Referral Specialty Diagnoses / Procedures Referred By Contac t Referred To Contact Diagnoses Snoring Obesity, Class III, BMI 40-49.9 (morbid obesity) (HCC) Daytime somnolence Procedures CONSULT TO SLEEP MEDICINE - ADULT OFFICE/OUTPATIENT [facility] MDM 60-74 MINUTES Ambika Johnson MD [address] [place] [address] Referral ID Status Reason Start Date Expiration Date Visits Requested Visits Authorized [id number] Pending Review PCP Requested Referral 3 07/14/2024 1 1 Specialty Diagnoses / Procedures Referred By Contac t Referred To Contact Diagnoses Class 3 severe obesity without serious comorbidity with body mass index (BMI) greater than or equal to 70 in adult, unspecified obesity type (HCC) Procedures CONSULT [facility] OFFICE/OUTPATIENT [facility] MDM 60-74 MINUTES PodlogToby townsend APRN.CNP [address] [place] [address] Referral ID Status Reason Start Date Expiration Date Visits Requested Visits Authorized [id number] Pending Review PCP Requested Referral 08/30/2023 08/29/2024 1 1 Additional Source Comments (unrecognized sect ion and content) No Status Records FoundNo Status Records Found INFORMATION SOURCE (unrecogn ized section and content) DATE CREATED AUTHOR AUTHOR'S ORGANIZ ATION 09/15/2023 [facility] Source Comments (unrecognize d section and content) In the event this informatio n is protected by the Federal Confidentiality of Alcohol and Drug Abuse Patient Records regulations: The Federal rules restrict any use of the information to criminally investigate or prosecute any alcohol or drug abuse patient.[facility] event this information is protected by the Federal Confidentiality of Alcohol and Drug Abuse Patient Records regulations: The Federal rules restrict any use of the information to criminally investigate or prosecute any alcohol or drug abuse patient.[facility] the event this information is protected by the Federal Confidentiality of Alcohol and Drug Abuse Patient Records regulations: The Federal rules restrict any use of the information to criminally investigate or prosecute any alcohol or drug abuse patient.[facility] the event this information is protected by the Federal Confidentiality of Alcohol and Drug Abuse Patient Records regulations: The Federal rules restrict any use of the information to criminally investigate or prosecute any alcohol or drug abuse patient.[facility] the event this information is protected by the Federal Confidentiality of Alcohol and Drug Abuse Patient Records regulations: The Federal rules restrict any use of the information to criminally investigate or prosecute any alcohol or drug abuse patient.[facility] the event this information is protected by the Federal Confidentiality of Alcohol and Drug Abuse Patient Records regulations: The Federal rules restrict any use of the information to criminally investigate or prosecute any alcohol or drug abuse patient.[facility] the event this information is protected by the Federal Confidentiality of Alcohol and Drug Abuse Patient Records regulations: The Federal rules restrict any use of the information to criminally investigate or prosecute any alcohol or drug abuse patient.[facility] the event this information is protected by the Federal Confidentiality of Alcohol and Drug Abuse Patient Records regulations: The Federal rules restrict any use of the information to criminally investigate or prosecute any alcohol or drug abuse patient.[facility] the event this information is protected by the Federal Confidentiality of Alcohol and Drug Abuse Patient Records regulations: The Federal rules restrict any use of the information to criminally investigate or prosecute any alcohol or drug abuse patient.[facility] the event this information is protected by the Federal Confidentiality of Alcohol and Drug Abuse Patient Records regulations: The Federal rules restrict any use of the information to criminally investigate or prosecute any alcohol or drug abuse patient.[facility] the event this information is protected by the Federal Confidentiality of Alcohol and Drug Abuse Patient Records regulations: The Federal rules restrict any use of the information to criminally investigate or prosecute any alcohol or drug abuse patient.[facility] the event this information is protected by the Federal Confidentiality of Alcohol and Drug Abuse Patient Records regulations: The Federal rules restrict any use of the information to criminally investigate or prosecute any alcohol or drug abuse patient.[facility] the event this information is protected by the Federal Confidentiality of Alcohol and Drug Abuse Patient Records regulations: The Federal rules restrict any use of the information to criminally investigate or prosecute any alcohol or drug abuse patient.[facility] the event this information is protected by the Federal Confidentiality of Alcohol and Drug Abuse Patient Records regulations: The Federal rules restrict any use of the information to criminally investigate or prosecute any alcohol or drug abuse patient.[facility] the event this information is protected by the Federal Confidentiality of Alcohol and Drug Abuse Patient Records regulations: The Federal rules restrict any use of the information to criminally investigate or prosecute any alcohol or drug abuse patient.[facility] the event this information is protected by the Federal Confidentiality of Alcohol and Drug Abuse Patient Records regulations: The Federal rules restrict any use of the information to criminally investigate or prosecute any alcohol or drug abuse patient.[facility] the event this information is protected by the Federal Confidentiality of Alcohol and Drug Abuse Patient Records regulations: The Federal rules restrict any use of the information to criminally investigate or prosecute any alcohol or drug abuse patient.[facility] the event this information is protected by the Federal Confidentiality of Alcohol and Drug Abuse Patient Records regulations: The Federal rules restrict any use of the information to criminally investigate or prosecute any alcohol or drug abuse patient.[facility] Reason for Visit (unrecogniz ed section and content) Reason Comments Abdominal Pain Pt reported intermit tent blood in stool onset AM, lower abd pain 3 x1 wk. Reason Comments Establish Care Reason Comments Results Reason Comments Appointment Reason Comments Medication Follow-up Reason Comments Patient Update Reason Comments Appointment Cancelled Reason Comments Consult Reason Comments Recheck Blood pressure Reason Comments Cough Cough, runny nose, s neezing and TOLLIVER x 1 day Reason Comments Blood Pressure 2 week follow up Care Teams (unrecognized sec tion and content) [employer] Rolls Relationship Specialty Start Date End Date Ambika Johnson MD [address] [place] [address] PCP - General Family Medicine 03/26/23 PodlogarToby APRN.CUT OFF SAWYER LOG [address] [place] [address] Family Medicine 03/26/23 [employer] Rolls Relationship Specialty Start Date End Date Ambika Johnson MD [address] [place] [address] PCP - General Family Medicine 03/26/23 PodlogarToby APRN.CUT OFF SAWYER LOG [address] [place] [address] Family Medicine 03/26/23 [employer] Rolls Relationship Specialty Start Date End Date Ambika Johnson MD [address] [place] [address] PCP - General Family Medicine 03/26/23 Podlogar, Toby, CENTRAL SUPPLY TECHNICIAN.CUT OFF SAWYER LOG [address] [place] [address] Family Medicine 03/26/23 [employer] Rolls Relationship Specialty Start Date End Date Ambika Johnson MD [address] [place] [address] PCP - General Family Medicine 03/26/23 Podlogar, Toby, CENTRAL SUPPLY TECHNICIAN.CUT OFF SAWYER LOG [address] [place] [address] Family Medicine 03/26/23 [employer] Rolls Relationship Specialty Start Date End Date Ambika Johnson MD [address] [place] [address] PCP - General Family Medicine 03/26/23 Podlogar, Toby, CENTRAL SUPPLY TECHNICIAN.CUT OFF SAWYER LOG [address] [place] [address] Family Medicine 03/26/23 [employer] Rolls Relationship Specialty Start Date End Date Ambika Johnson MD [address] [place] [address] PCP - General Family Medicine 03/26/23 Podlogar, Toby, CENTRAL SUPPLY TECHNICIAN.CUT OFF SAWYER LOG [address] [place] [address] Family Medicine 03/26/23 [employer] Rolls Relationship Specialty Start Date End Date Ambika Johnson MD [address] [place] [address] PCP - General Family Medicine 03/26/23 Podlogar, Toby, CENTRAL SUPPLY TECHNICIAN.CUT OFF SAWYER LOG [address] [place] [address] Family Medicine 03/26/23 [employer] Rolls Relationship Specialty Start Date End Date Ambika Johnson MD [address] [place] [address] PCP - General Family Medicine 03/26/23 Podlogar, Toby, CENTRAL SUPPLY TECHNICIAN.CUT OFF SAWYER LOG [address] [place] [address] Family Medicine 03/26/23 [employer] Rolls Relationship Specialty Start Date End Date Ambika Johnson MD [address] [place] [address] PCP - General Family Medicine 03/26/23 Podlogar, Toby, CENTRAL SUPPLY TECHNICIAN.CUT OFF SAWYER LOG [address] [place] [address] Family Medicine 03/26/23 [employer] Rolls Relationship Specialty Start Date End Date Ambika Johnson MD [address] [place] [address] PCP - General Family Medicine 03/26/23 Podlog[employer], Toby, CENTRAL SUPPLY TECHNICIAN.CUT OFF [employer] [address] [place] [address] Family Medicine 03/26/23 [employer] Rolls Relationship Specialty Start Date End Date Ambika Johnson MD [address] [place] [address] PCP - General Family Medicine 03/26/23 Podlogar, Toby, CENTRAL SUPPLY TECHNICIAN.CUT OFF [employer] [address] [place], [place] [address] Family Medicine 03/26/23 [employer] Rolls Relationship Specialty Start Date End Date Ambika Johnson MD [address] [place], [place] [id number] PCP - General Family Medicine 03/26/23 PodlogarToby, CENTRAL SUPPLY TECHNICIAN.CUT OFF [employer] [address] [place], [place] [id number] [facility] 03/26/23 [employer] Rolls Relationship Specialty Start Date End Date Ambika Johnson MD [address] [place], [place] [id number] PCP - General Family Medicine 03/26/23 PodlogarToby, CENTRAL SUPPLY TECHNICIAN.CUT OFF [employer] [address] [place], [place] [id number] [facility] 03/26/23 FOR RECORDS PERTAINING TO PATIENTS WHO ARE OR HAVE BEEN ENROLLED IN A CHEMICAL DEPENDENCY/SUBSTANCEABUSE PROGRAM, SOME INFORMATION MAY BE OMITTED. This clinical summary was aggregated from multiple sources. Caution should be exercised in using it in the provision of clinical care. This summary normalizes information from multiple sources, and as a consequence, information in this document may materially change the coding, format and clinical context of patient data. In addition, data may be omitted in some cases. CLINICAL DECISIONS SHOULD BE BASED ON THE PRIMARY CLINICAL RECORDS. [employer] provides no warranty or guarantee of the accuracy or completeness of information in this document.
== END | disposition home or self-care (01) ==
LOC: SL 19:57
PROVIDERS: Referring Provider Nurse Practitioner Primary Care; Visit Provider Nurse Practitioner Primary Care
DX: G47.33 Obstructive sleep apnea (adult) (pediatric) (principal)
CPT/HCPCS: 95811

== ENCOUNTER 2023-10-14 13:58 | Emergency (ER) | payer OTHER, SELFPAY ==
[2023-10-14 13:59] VITALS: BP 180/97; PULSE 113; RESP 26; TEMP 35.9; O2SAT 98; BMI 81.2
[2023-10-14 16:09] VITALS: BP 132/81; PULSE 87
--- NOTE | 2023-10-14 16:12 | RAD_ITS ---
INDICATION: pain EXAMINATION/TECHNIQUE: X-RAY - XR Spine Lumbar 2 or 3 Views COMPARISON: None. FINDINGS: VERTEBRAE: Vertebral body height is maintained however marginal osteophytes are noted particularly at T12-L1 and L1-2. No fracture destructive bony process. Paraspinous soft tissue planes have normal appearance. DISCS: Disc space narrowing at L5-S1, and a mild disc space narrowing at L1-2. INCLUDED ABDOMEN: Included bowel gas pattern is non-obstructive. RAD/Lumbar Spine 2 or 3 Views IMPRESSION: 1. Chronic discogenic changes. No fracture or destructive bony process. No malalignment. Electronically Signed: Shola Lino MD at 17:32 EST ,
--- NOTE | 2023-10-14 16:13 | EX.ED.DYSGE1 ---
HPI <YOLI Buchanan - Last Filed: 10/14/23 20:14> History of Present Illness Chief Complaint: Back Narrative Narrative: 28-year-old male presents with bilateral low back pain and with movement has pain radiating down the posterior thigh to above the level of his knee. 3 days ago he slept in the hospital for sleep study and felt fine but yesterday is low back ached and today the pain became more severe with spasms. He has had no other change in activity and no trauma. He has no weakness or paresthesias. No saddle esthesia or bladder bowel incontinence. No fever or IVDU. He has not tried any medications. PFSH <YOLI Buchanan - Last Filed: 10/14/23 20:14> [facility] Home Medications Ibuprofen [Motrin] 800 mg PO TID PRN PRN Pain #20 tabs 05/31/15 [Rx Last Taken Unknown] losartan 25 mg tablet 25 mg PO DAILY 10/14/23 [History Last Taken 10/13/23] naproxen 500 mg tablet (Naprosyn) 500 mg PO BID PRN pain #20 tabs 10/14/23 [Rx Last Taken Unknown] prednisone 50 mg tablet 50 mg PO DAILY 5 days #5 tabs 10/14/23 [Rx Last Taken Unknown] Allergy/AdvReac Type Severity Reaction Status Date / Time Penicillins Allergy Hives Verified 10/14/23 13:58 Surgical History no surgical history Social History Smoking Status: Never smoker ROS <YOLI Buchanan - Last Filed: 10/14/23 20:14> ROS ED ROS Narrative Constitutional: Negative for fever, chills, malaise. Neuro: Negative for motor/sensory dysfunction. Musc: Negative for joint pain, swelling, trauma. EXAM <YOLI Buchanan Last Filed: 10/14/23 20:14> Physical Exam Narrative Exam Narrative: CONST: Patient sitting in no acute distress. EYES: Normal inspection. NECK: Normal inspection. RESP: No respiratory distress, CTAB. CVS: Regular rate and rhythm, no murmur, no gallop. Back: Normal inspection, lumbar midline tenderness without step-offs, right lumbar paraspinal tenderness. SKIN: Color normal, no rash, warm, dry, intact. EXTREMITIES: Normal appearance, 5/5 bilateral hip strength, knee flexion/extension, DF/PF. Normal sensation, 2+ DP pulses. NEURO: Oriented x4. PSYCH: Normal affect. Const Vital Signs: 10/14/23 13:59 10/14/23 16:09 Temperature 96.7 F L Temperature Source Temporal Pulse Rate 113 H 87 Respiratory Rate 26 H Blood Pressure 180/97 H 132/81 H Blood Pressure Mean 124 98 Pulse Ox 98 Oxygen Delivery Method Room Air <Dr. Martin Gottlieb DO - Last Filed: 10/14/23 23:46> Physical Exam Const Vital Signs: 10/14/23 13:59 10/14/23 16:09 Temperature 96.7 F L Temperature Source Temporal Pulse Rate 113 H 87 Respiratory Rate 26 H Blood Pressure 180/97 H 132/81 H Blood Pressure Mean 124 98 Pulse Ox 98 Oxygen Delivery Method Room Air MDM <YOLI Buchanan - Last Filed: 10/14/23 20:14> [facility] MDM Narrative Medical decision making narrative: Patient here with 2 days of atraumatic lumbar pain radiating down the right posterior thigh. He is morbidly obese. He appears well and nontoxic and was hypertensive and tachycardic in triage. He has tenderness over the lower lumbar spine diffusely over the right lumbar muscles. Lower extremity MSPs and reflexes are intact. He was treated with IM Toradol and Norflex and lumbar x-rays obtained which show no acute findings. He was able to ambulate and is comfortable going home. I prescribed prednisone and naproxen, advised he can also use ice and Tylenol, and should follow-up with his primary care doctor. He was discharged in stable condition. Differential: Musculoskeletal back pain, lumbar radiculopathy, sciatica Test considered but not ordered: He has no red flag symptoms concerning for cauda equina syndrome or epidural abscess and no indication for MRI Radiography Diagnostic Testing: Clinical Impression(s) from Imaging Studies Lumbar Spine X-Ray 10/14/23 16:12 IMPRESSION: 1. Chronic discogenic changes. No fracture or destructive bony process. No malalignment. Electronically Signed: Shola Lino MD at 17:32 EST , ED attending interpretation of lumbar x-ray shows no fracture or spondylolisthesis. <Dr. Martin Gottlieb, DO - Last Filed: 10/14/23 23:46> [facility] Radiography Diagnostic Testing: Clinical Impression(s) from Imaging Studies Lumbar Spine X-Ray 10/14/23 16:12 IMPRESSION: 1. Chronic discogenic changes. No fracture or destructive bony process. No malalignment. Electronically Signed: Shola Lino MD at 17:32 EST , Treatment and Re-Evaluation :: ED attending note: I evaluated the patient in conjunction with the DESTINY. I agree with his/her statements and above findings. I have personally performed a face to face assessment of the patient and have reviewed the DESTINY Note. I performed a substantive portion of the visit including all aspects of the following. I personally saw the patient performed chart review, physical exam, reviewed labs, imaging (if obtained), and formulated a treatment and management plan. Brief history: 28-year-old male here for atraumatic back pain. Patient denies any saddle anesthesia, urinary retention, bowel or bladder incontinence, lower extremity weakness, fever or IV drug use, no recent spinal manipulation or surgery, no recent urinary catheterization. Exam: Nursing triage notes reviewed, Vital signs reviewed Constitutional: please see [facility], morbidly obese HENT: MMM Eyes: Pupils equal round and reactive to light, Extraocular muscles intact Neck: No stridor, no JVD, full neck ROM Lungs: Clear to auscultation, No wheezing or rales. No increased work of breathing, no conversational dyspnea, no accessory muscle use, no nasal flaring. No respiratory distress noted Heart: Regular rate and rhythm, No murmurs, No rubs and No gallops, 2+ distal pulses (radial, femoral, posterior tibial) in all extremities Abdomen: Soft, there is no tenderness, rigidity, rebound or guarding, no obvious peritoneal signs, no palpable pulsatile abdominal masses, no auscultated abdominal bruit : No CVAT Extremities: No edema Neuro: Intact sensation L1-S1 dermatomal distributions. Intact 5/5 strength in hip flexion (T12-L3). Knee extension (L2-L4). Ankle dorsiflexion (L4-L5). Ankle plantar flexion (S1). Great toe extension (L5). 2+ patellar and Achilles DTRs. Skin: No rash or lesions noted MDM/plan: Chief Complaint: Back pain External records reviewed: No recent advanced imaging of the back Factors affecting care: Obesity Social determinants of health: Denies IV drug use History obtained from others: None Consults: None MDM narrative: Patient was hemodynamically stable, afebrile, nontoxic-appearing. Initially hypertensive and tachycardic however this resolved after symptomatic treatment. I considered the following differential diagnosis: Epidural abscess, fracture dislocation of the lumbar spine, lumbar radiculopathy X-ray of the lumbar spine was read and reviewed myself shows no evidence of obvious displacement, fracture The patient presented complaining of back pain. There was no evidence to support genitourinary etiology. There is also no evidence to suggest vascular pathology such as AAA dissection. No fevers or other evidence to suspect infectious processes, abscess, osteomyelitis etc. The patient?s neurological exam is normal with normal motor and sensory. There is no saddle paresthesias reported and no bowel or bladder incontinence or retention. I suspect the pain is mechanical in nature. Clinical suspicion, plan of care and management was discussed with the patient. The patient was instructed to follow up with their health care provider. The patient was also instructed to return if the pain worsened, changed, or developed weakness or bowel or bladder trouble. The patient agreed with plan. I completed a structured, evidence-based clinical evaluation to screen for acute non-traumatic spinal emergencies. The patient has a normal detailed neurologic exam and red flag historical factors were negative. The evidence indicates that the patient is very low risk for an acute spinal emergency and this is consistent with my clinical intuition. The risk of further workup is higher than the likelihood of the patient having a spinal epidural abscess or other dangerous emergency spinal condition. It is, therefore, in the patient?s best interest not to do additional emergent testing at this time. Shared Decision-Making I have discussed with the patient my clinical impression and the result of an evidence-based clinical evaluation to screen for spinal epidural abscess and other spinal emergencies, as well as the risk of further testing and hospitalization. The evidence shows that the risk for an acute spinal emergency is less than 1%. Although the risk of an acute spinal emergency has not been completely eliminated, the risks of further testing likely exceed any potential benefit, and the patient agrees with not pursuing further emergent evaluation for causes of back pain at this time. Impression: 1. Acute atraumatic back pain 2. Lumbar radiculopathy 3. Morbid obesity Disposition: discharge Discharge Plan Triage Chief Complaint: Back ED Midlevel Provider: Linda Asher ED Provider: Martin Gottlieb Dx/Rx/DC Orders Clinical Impression: Acute lumbar myofascial strain Instructions: Back Safety: Basics of Good Posture Prescriptions: New prednisone 50 mg tablet 50 mg PO DAILY 5 Days Qty: 5 0RF naproxen [Naprosyn] 500 mg tablet 500 mg PO BID PRN (Reason: pain) Qty: 20 0RF No Action Ibuprofen [Motrin] 800 MG tablet 800 mg PO TID PRN PRN (Reason: Pain) Qty: 20 0RF losartan 25 mg tablet 25 mg PO DAILY Patient Comments: take 1 tablet by mouth once daily Primary Care Provider: Zenobia Chester NP Referrals: Zenobia Chester NP, [employer] [Primary Care Provider] - Activity Restrictions/Additional Instructions: I prescribed steroids (prednisone) and naproxen which is a pain reliever. These medications can be harsh on your stomach so please take with food and water. You can also buy [id number] Tylenol and take 1000 mg every 6 hours in addition to these for pain control. Please follow-up with your primary care doctor. Disposition Disposition: Home, Self Care Discharge Date/Time: 10/14/23 17:54 Capacity <YOLI Buchanan - Last Filed: 10/14/23 20:14> [employer] Ref[employer] Medical hold order details:: IF a medical hold is selected below, a suggested order for a MEDICAL HOLD will reflex upon signing the document. Next of kin: [place] law dictates a PRIORITY LIST for identifying legal decision-maker/legal next of kin in the following order (LNOK): 1st: The patient?s legal guardian, if any 2nd: The patient's spouse (if status is questionable, consult Risk Management) 3rd: The patient?s adult child(bar) (majority, if multiple children) 4th: The patient?s parents 5th: The patient?s adult siblings (majority, if multiple children siblings)
--- OUTSIDE RECORDS SUMMARY | 2023-10-14 16:22 | XMS RPT_ITS | CCD ---
Author Name Unknown Address [address] [place] [address] Organization [facility] Care Team Providers Care Deicer Repairer Pneumatic Name Role Phone GUZMAN CAMPOS Unavailable Unavailable GUZMAN CAMPOS Unavailable Unavailable GUZMAN CAMPOS Unavailable Unavailable NO, DOCTOR ON Unavailable Unavailable NO, DOCTOR ON Unavailable Unavailable Unavailable Primary Care Provider Unavailabl e Unavailable Primary Care Provider Unavailabl e Ambika Johnson MD Primary Care Provider Podlogar SALESPERSON [employer].Toby MCCURDY Unavailable [phone] AMBIKA JOHNSON Primary Care Unavailab le PODLOGAR, [...] Reaction(s) Facility (1 source) acetylcarnitine Drug Allergy [facility] Repository (2 sources) Penicillins; Translations: [PENICILLINS] [facility] Work Phone: (18 sources) Acetylcarnitine; Translations: [ACETYLCARNITINE] Drug Allergy 3 Unknown [facility] (17 sources) Penicillins Drug Allergy 5 Hives [facility] Work Phone: Medications Completed/Discontinued Medications Medication Drug [...] river 09-13-2023 10:27-0500 Body weight 248.75 kg Toby Chester APRN.CNP Work Phone: [facility] 09-13-2023 10:27-0500 Diastolic blood pressure 88 mm[Hg] Toby Chester APRN.CNP Work Phone: [facility] 09-13-2023 10:27-0500 Heart rate 92 /min Toby Podlogar SALESPERSON [employer].AUTOMAT CAR ATTENDANT Work Phone: [facility] 09-13-2023 10:27-0500 SaO2% (BldA) [Mass fraction] 98 % Toby Podlogar SALESPERSON [employer].AUTOMAT CAR ATTENDANT Work Phone: [facility] 09-13-2023 10:27-0500 Systolic blood pressure 132 mm[Hg] Toby Podlogar SALESPERSON [employer].AUTOMAT CAR ATTENDANT Work Phone: [facility] 09-05-2023 18:47-0500 Body temperature 98.6 [degF] Lefty Pendlebury SALESPERSON [employer].AUTOMAT CAR ATTENDANT Work Phone: [facility] 09-05-2023 18:47-0500 Body weight 243.76 kg [facility] SALESPERSON [employer].AUTOMAT CAR ATTENDANT Work Phone: [facility] 09-05-2023 18:47-0500 Diastolic blood pressure 68 mm[Hg] Lefty Pendlebury SALESPERSON [employer].AUTOMAT CAR ATTENDANT Work Phone: [facility] 09-05-2023 18:47-0500 Heart rate 102 /min Lefty Pendlebury SALESPERSON [employer].AUTOMAT CAR ATTENDANT Work Phone: [facility] 09-05-2023 18:47-0500 Respiratory rate 16 /min [facility] SALESPERSON [employer].AUTOMAT CAR ATTENDANT Work Phone: [facility] 09-05-2023 18:47-0500 SaO2% (BldA) [Mass fraction] 97 % Lefty Pendlebury SALESPERSON [employer].AUTOMAT CAR ATTENDANT Work Phone: [facility] 09-05-2023 18:47-0500 Systolic blood pressure 122 mm[Hg] Lefty Pendlebury SALESPERSON [employer].AUTOMAT CAR ATTENDANT Work Phone: [facility] 08-30-2023 11:04-0500 Diastolic blood pressure 88 mm[Hg] Toby Podlogar SALESPERSON [employer].AUTOMAT CAR ATTENDANT Work Phone: [facility] 08-30-2023 11:04-0500 Heart rate 87 /min Toby Podlogar SALESPERSON [employer].AUTOMAT CAR ATTENDANT Work Phone: [facility] 08-30-2023 11:04-0500 Systolic blood pressure 167 mm[Hg] Toby Podlogar SALESPERSON [employer].AUTOMAT CAR ATTENDANT Work Phone: [facility] 08-30-2023 10:40-0500 Body weight 245.49 kg Toby Podlogar SALESPERSON [employer].AUTOMAT CAR ATTENDANT Work Phone: [facility] 08-30-2023 10:40-0500 Respiratory rate 18 /min Toby Podlogar SALESPERSON [employer].AUTOMAT CAR ATTENDANT Work Phone: [facility] 08-30-2023 10:40-0500 SaO2% (BldA) [Mass fraction] 96 % Toby Podlogar SALESPERSON [employer].AUTOMAT CAR ATTENDANT Work Phone: [facility] 05-24-2023 12:09-0400 Body weight 245.22 kg Toby Podlogar SALESPERSON [employer].AUTOMAT CAR ATTENDANT Work Phone: [facility] 05-24-2023 12:09-0400 Diastolic blood pressure 82 mm[Hg] Toby Podlogar SALESPERSON [employer].AUTOMAT CAR ATTENDANT Work Phone: [facility] 05-24-2023 12:09-0400 Heart rate 89 /min Toby Podlogar SALESPERSON [employer].AUTOMAT CAR ATTENDANT Work Phone: [facility] 05-24-2023 12:09-0400 Respiratory rate 18 /min Toby Podlogar SALESPERSON [employer].AUTOMAT CAR ATTENDANT Work Phone: [facility] 05-24-2023 12:09-0400 SaO2% (BldA) [Mass fraction] 94 % Toby Podlogar SALESPERSON [employer].AUTOMAT CAR ATTENDANT Work Phone: [facility] 05-24-2023 12:09-0400 Systolic blood pressure 126 mm[Hg] Toby Podlogar SALESPERSON [employer].AUTOMAT CAR ATTENDANT Work Phone: [facility] 04-26-2023 11:43-0400 Body weight 241.04 kg Toby Podlogar SALESPERSON [employer].AUTOMAT CAR ATTENDANT Work Phone: [facility] 07-28-2023 11:43-0400 Diastolic blood pressure 84 mm[Hg] Toby Podlogar SALESPERSON [employer].AUTOMAT CAR ATTENDANT Work Phone: [facility] 04-26-2023 11:43-0400 Heart rate 86 /min Toby Podlogar SALESPERSON [employer].AUTOMAT CAR ATTENDANT Work Phone: [facility] 04-26-2023 11:43-0400 Respiratory rate 18 /min Toby Podlogar SALESPERSON [employer].AUTOMAT CAR ATTENDANT Work Phone: [facility] 04-26-2023 11:43-0400 Systolic blood pressure 132 mm[Hg] Toby Podlogar SALESPERSON [employer].AUTOMAT CAR ATTENDANT Work Phone: [facility] 03-26-2023 11:01-0400 Body height 175.5 cm Toby Podlogar SALESPERSON [employer].AUTOMAT CAR ATTENDANT Work Phone: [facility] 03-26-2023 11:01-0400 Body weight 240.32 kg Toby Podlogar SALESPERSON [employer].AUTOMAT CAR ATTENDANT Work Phone: [facility] 03-26-2023 11:01-0400 Diastolic blood pressure 78 mm[Hg] Toby Podlogar SALESPERSON [employer].AUTOMAT CAR ATTENDANT Work Phone: [facility] 03-26-2023 11:01-0400 Heart rate 98 /min Toby Podlogar SALESPERSON [employer].AUTOMAT CAR ATTENDANT Work Phone: [facility] 03-26-2023 11:01-0400 Respiratory rate 18 /min Toby Podlogar SALESPERSON [employer].AUTOMAT CAR ATTENDANT Work Phone: [facility] 03-26-2023 11:01-0400 SaO2% (BldA) [Mass fraction] 96 % Toby Podlogar SALESPERSON [employer].AUTOMAT CAR ATTENDANT Work Phone: [facility] 03-26-2023 11:01-0400 Systolic blood pressure 136 mm[Hg] Toby Podlogar SALESPERSON [employer].AUTOMAT CAR ATTENDANT Work Phone: [facility] 11-06-2022 19:19-0500 Body temperature 98.71 [degF] Bethany Britt SALESPERSON [employer].AUTOMAT CAR ATTENDANT Work Phone: [facility] 11-06-2022 19:19-0500 Diastolic blood pressure 90 mm[Hg] Bethany Praisler-Wood SALESPERSON [employer].AUTOMAT CAR ATTENDANT Work Phone: [facility] 11-06-2022 19:19-0500 Heart rate 120 /min Bethany Praisler-Wood SALESPERSON [employer].AUTOMAT CAR ATTENDANT Work Phone: [facility] 11-06-2022 19:19-0500 Respiratory rate 18 /min Bethany Praisler-Wood SALESPERSON [employer].AUTOMAT CAR ATTENDANT Work Phone: [facility] 11-06-2022 19:19-0500 SaO2% (BldA) [Mass fraction] 97 % Bethany Praisler-Wood SALESPERSON [employer].AUTOMAT CAR ATTENDANT Work Phone: [facility] 11-06-2022 19:19-0500 Systolic blood pressure 144 mm[Hg] Bethany Praisler-Wood SALESPERSON [employer].AUTOMAT CAR ATTENDANT Work Phone: [facility] 02-11-2022 14:22-0400 Body temperature 98.49 [degF] Kirstin Palmer SALESPERSON [employer].AUTOMAT CAR ATTENDANT Work Phone: [facility] 02-11-2022 14:22-0400 Body weight 219.09 kg Kirstin Palmer SALESPERSON [employer].AUTOMAT CAR ATTENDANT Work Phone: [facility] 02-11-2022 14:22-0400 Diastolic blood pressure 86 mm[Hg] Kirstin Palmer SALESPERSON [employer].AUTOMAT CAR ATTENDANT Work Phone: [facility] 02-11-2022 14:22-0400 Heart rate 104 /min Kirstin Palmer SALESPERSON [employer].AUTOMAT CAR ATTENDANT Work Phone: [facility] 02-11-2022 14:22-0400 Respiratory rate 18 /min Kirstin Palmer SALESPERSON [employer].AUTOMAT CAR ATTENDANT Work Phone: [facility] 02-11-2022 14:22-0400 SaO2% (BldA) [Mass fraction] 98 % Kirstin Palmer SALESPERSON [employer].AUTOMAT CAR ATTENDANT Work Phone: [facility] 02-11-2022 14:22-0400 Systolic blood pressure 134 mm[Hg] Kirstin Palmer SALESPERSON [employer].KAZ Work Phone: [facility] Encounters Encounter Date Encounter Type Care Provider Facility Start: 09-13-2023 End: 09-13-2023 ambulatory TOBY PODLOGAR Facility:[facility] Start: 09-13-2023 End: 09-13-2023 Patient encounter procedure Toby Podlogar SALESPERSON [employer].KAZ Work Phone: [facility] [place] Procedures Date Procedure Procedure Detail Performing Clinician Start: 09-13-2023 PFIZER-BIONTECH COVI D-19 VACCINE () AGE 12+ YR Toby Podlogar SALESPERSON [employer].KAZ Work Phone: Start: 09-13-2023 INFLUENZA VACCINE, A GE 6 MO - 64 YR, QUADRIVALENT (AFLURIA, FLULAVAL, FLUZONE) Toby Podlogar SALESPERSON [employer].KAZ Work Phone: Start: 11-06-2016 Adult depression scr eening assessment Kirstin Palmer SALESPERSON [employer].AUTOMAT CAR ATTENDANT Work Phone: Plan of Treatment Date Care Activity Detail Author Start: 05-31-2025 Urine microalbumin profile DTa P,Tdap,Td Vaccine (2 - Td or Tdap) [facility] Start: 09-13-2024 Annual PCP Team [employer] Ii Assembler fidencio Disease Visit Annual PCP Team Chronic Disease Visit [facility] Start: 03-26-2024 HEPATITIS C SCREENING HEPATITIS C [facility] Immunizations Immunization Date Immunization Notes Care Provider Fa cility 09-13-2023 COVID-19 vaccine, ag e 12+ yr, season (PFIZER-BIONTECH) Toby Podlogar SALESPERSON [employer].AUTOMAT CAR ATTENDANT Work Phone: [facility] 09-13-2023 influenza, injectabl e, quadrivalent, contains preservative Toby Podlogar SALESPERSON [employer].AUTOMAT CAR ATTENDANT Work Phone: [facility] 09-22-2021 influenza virus vaccine, unspecified formulation Elbert Braun MD Work Phone: [facility] 01-19-2021 COVID-19 vaccine, fu ll dose (MODERNA) Kirstin Palmer SALESPERSON [employer].AUTOMAT CAR ATTENDANT Work Phone: [facility] Work Phone: 12-22-2020 COVID-19 vaccine, fu ll dose (MODERNA) Kirstin Palmer SALESPERSON [employer].AUTOMAT CAR ATTENDANT Work Phone: [facility] Work Phone: 11-07-2019 influenza, injectabl e, quadrivalent, preservative free Kirstin Pamler SALESPERSON [employer].AUTOMAT CAR ATTENDANT Work Phone: [facility] Work Phone: Payers Date Payer Category Payer Unknown [id number] 2022 Unknown [id number] 2021 Unknown [employer] BL[employer] CARD POS OOS [id number] 2021-Present [phone] [address] [place] [address] POS [id number] Unknown [id number] Social History Date Type Detail Facility Start: 08-04-2012 Tobacco smoking stat [facility] Never smoked tobacco [facility] Work Phone: Start: 02-11-2022 Alcohol intake Current non-dr proposal writer of alcohol (finding) [facility] Start: 1995 Sex Assigned At Not on file C [facility] Start: 02-01-2022 End: 02-11-2022 Exposure to SARS-CoV-2 (event) Not sure [facility] Start: 08-04-2012 Tobacco use and exposure Smokeless tobacco non-user [facility] Start: 11-06-2022 Alcohol intake Current drinke r of alcohol (finding) [facility] Start: 11-06-2022 Alcohol Comment social [facility] Start: 03-26-2023 End: 09-13-2023 Alcohol intake Not Asked [facility] Start: 03-26-2023 End: 08-02-2023 History of Social function [facility] Work Phone: Start: 03-26-2023 End: 08-02-2023 Tobacco use panel [facility] Work Phone: Adult Depression Screening Assessment 4 [facility] Work Phone: Clinical Notes 02-11-2022 to 09-13-2023 Toby Chester APRN.KAZ - 09/13/2023 10:22 AM Lefty Castro APRN.KAZ - 09/05/2023 6:52 PM Toby Santiago APRN.CNP - 08/30/2023 10:34 AM ESTPatient InstructionsPatient Instructions Note Date & Type Note Facility 09-13-2023 Note HNO ID: [id number] Author: Toby Chester APRN.AUTOMAT CAR ATTENDANT Service: ? Author Type: Nurse Practitioner Type: [...] 64 YR, QUADRIVALENT (AFLURIA, FLULAVAL, FLUZONE) - [employer] COVID-19 VACCINE ( SEASON) AGE 12+ YR Toby Sierralogkristian, PEDRO.AUTOMAT CAR ATTENDANT Prescription instructions reviewed with patient as applicable. [...] which included preparing to see the patient, aqdo-vt-wswl patient care, completing clinical documentation, obtaining and/or reviewing separately obtained history, performing a medically appropriate examination, counseling and educating the patient/family/caregiver, and ordering medications, tests, or procedures. [place] 09-13-2023 History of Presen t illness Narrative [...] 63 YR, QUADRIVALENT (AFLURIA, FLULAVAL, FLUZONE) - [employer] COVID-19 VACCINE ( SEASON) AGE 12+ YR Toby Chester APRN.AUTOMAT CAR ATTENDANT Prescription instructions reviewed with patient as applicable. [...] which included preparing to see the patient, ctwr-tv-lffy patient care, completing clinical documentation, obtaining and/or reviewing separately obtained history, performing a medically appropriate examination, counseling and educating the patient/family/caregiver, and ordering medications, tests, or procedures. documented in this encounter [facility] 09-05-2023 Note HNO ID: [id number] Author: Lefty Hairston APRN.KAZ Service: ? Author [...] of care. This note was generated using Ghost software. It may contain errors in wording, punctuation, or spelling. Lefty Hairston APRN (more content not included)... [place] 09-05-2023 History of Presen t illness Narrative [...] of care. This note was generated using Ghost software. It may contain errors in wording, punctuation, or spelling. Lefty Hairston APRN.KAZ documented in this encounter [facility] 08-30-2023 Note HNO ID: [id number] Author: Toby Chester APRN.KAZ Service: ? Author Type: Nurse Practitioner Type: Progress Notes Filed: 08/30/2023 12:22 PM Note Text: [id number] Patient presents with: Recheck: Blood pressure SUBJECTIVE: [...] 327.23, ICD10: G47.33 - will complete at [facility] - will fax over order and he will need to call and schedule - needs to make appointment with sleep medicine Toby SierralogPEDRO townsend.AUTOMAT CAR ATTENDANT Prescription instructions reviewed with patient as applicable. [...] which included preparing to see the patient, uivu-lg-bazf patient care, completing clinical documentation, obtaining and/or reviewing separately obtained history, performing a medically appropriate examination, counseling and educating the patient/family/caregiver, and ordering medications, tests, or procedures. [place] 08-30-2023 History of Presen t illness Narrative [id number]/1/2023 Patient presents with: Recheck: Blood pressure SUBJECTIVE: [...] 327.23, ICD10: G47.33 - will complete at [facility] - will fax over order and he will need to call and schedule - needs to make appointment with sleep medicine Toby Chester APRN.AUTOMAT CAR ATTENDANT Prescription instructions reviewed with patient as applicable. [...] which included preparing to see the patient, frpy-op-rsfn patient care, completing clinical documentation, obtaining and/or reviewing separately obtained history, performing a medically appropriate examination, counseling and educating the patient/family/caregiver, and ordering medications, tests, or procedures. documented in this encounter [facility] 08-16-2023 Miscellaneous Notes Detailed VM left on pt's identified voicemail of information below. Sunita Welsh LPN LM to contact office. Danielle Travis MA [employer] message sent to pt notifying him we attempted to contact him to setup 4 wk f/u appt. Notified pt to setup appt end of /beginning of August or call office to schedule. Sara Dennison Ma Patient telephoned to schedule 4 week follow up for blood pressure. Message left to call back and schedule. Aydee Perrin LPN documented in this encounter [facility] 08-02-2023 Note HNO ID: [id number] Author: Toby Chester APRN.KAZ Service: ? Author [...] Abs Lymph 1.00 - 4.00 k/uL 2.47 Sunflower% % 6.4 Abs Sunflower <0.87 k/uL 0.53 Eosin% % 2.0 Abs [...] patient as applicabl (more content not included)... [place] 07-17-2023 Note HNO ID: [id number] Author: Nat Mallory APRN.KAZ Service: ? Author [...] patient was okay with this care plan. [place] 07-17-2023 History of Presen t illness Narrative [...] this care plan. documented in this encounter [facility] 07-17-2023 Miscellaneous Notes Pt reports he would like referral sent to [facility]. Faxed cover sheet, consult to sleep medicine, order, and last OV note to fax # [phone]. Called and left a detailed voicemail notifying patient of providers message. Hospital phone number was left for patient to call back and let us know if he would like us to send information to [facility] sleep lab or [facility]. Maria D Christianson RN New order approved. Pt called in and reports he was supposed to go for a sleep test, but it was up in [place]. Pt states he would rather go here in [place]. Pt is asking if provider would put in an order for a consult to a sleep lab. He states he would either like to go to [facility] or [facility]. Please call Pt once order has been placed and information has been sent. documented in this encounter [facility] 06-12-2023 Miscellaneous Notes Patient has been contacted [...] reschedules. Sent MyChart. documented in this encounter [facility] 05-24-2023 Note HNO ID: [id number] Author: Toby Chester APRN.AUTOMAT CAR ATTENDANT Service: ? Author Type: Nurse Practitioner Type: [...] needed - follow-up as needed Toby Podlogkristian, PEDRO.AUTOMAT CAR ATTENDANT Prescription instructions reviewed with patient as applicable. [...] which included preparing to see the patient, jhnl-uk-bqal patient care, completing clinical documentation, obtaining and/or reviewing separately obtained history, performing a medically appropriate examination, counseling and educating the patient/family/caregiver [place] 05-24-2023 History of Presen t illness Narrative [...] which included preparing to see the patient, aisf-zd-jzzd patient care, completing clinical documentation, obtaining and/or reviewing separately obtained history, performing a medically appropriate examination, counseling and educating the patient/family/caregiver documented in this encounter [facility] 05-22-2023 Miscellaneous Notes Pt called and is notified of providers message and instructions. Pt voices understanding. Maria D Christianson, JESUS Please make sure he has number below which he can call if he has suicidal thoughts again or he can always go to ER or call 911 as well *If you ever experience a mental health crisis please call [phone] Toby Monge APRN.CNP Patient calling to say [...] Keesha Sullivan, RN documented in this encounter [facility] 05-16-2023 Note HNO ID: [id number] Author: Nkechi Steele Service: ? Author Type: [...] Nkechi Steele May 16, 2023 1:58 PM [place] 05-16-2023 Note Patient Outreach (AC CC) TYRA SAGASTUME ([id number]) 1995 M Date Time Provider Department 05/16/23 PCP ([facility]) [facility] During your visit today, we recorded the [...] Encounter Status:Closed by NKECHI STEELE on 05/16/23 [place] 05-15-2023 Note HNO ID: [id number] Author: Bri Baptiste PA-C Service: ? Author Type: Physician Psychiatric Assistant Type: Progress Notes Filed: 05/15/2023 7:57 PM Note Text: This note was created using Rapid [employer] Packaging[employer]. Subjective Tyra Sagastume is a 27 year [...] again. He is agreeable. Bri Baptiste PA-C [place] 04-26-2023 Note HNO ID: [id number] Author: Toby Chester APRN.AUTOMAT CAR ATTENDANT Service: ? Author Type: Nurse Practitioner Type: [...] follow-up yearly and as needed Toby Podlogar, SALESPERSON [employer].AUTOMAT CAR ATTENDANT Prescription instructions reviewed with patient as applicable. [...] which included preparing to see the patient, mcjf-gd-duvi patient care, completing clinical documentation, obtaining and/or reviewing separately obtained history, performing a medically appropriate examination, counseling and educating the patient/family/caregiver, and ordering medications, tests, or procedures. [place] 04-26-2023 History of Presen t illness Narrative [...] which included preparing to see the patient, vvif-yb-acgq patient care, completing clinical documentation, obtaining and/or reviewing separately obtained history, performing a medically appropriate examination, counseling and educating the patient/family/caregiver, and ordering medications, tests, or procedures. documented in this encounter [facility] 04-05-2023 Miscellaneous Notes 2nd attempt left voice mail Called and left a detailed voicemail notifying patient of providers message. Left msg that [facility] would be able to do the study as well. Please call pt again to confirm he gets this scheduled. BMI 78 WT 529. Due to BMI an in lab sleep study is recommended instead of home sleep study. Will order and patient may call to schedule. Toby Chester APRN.KAZ documented in this encounter [facility] 04-01-2023 Miscellaneous Notes Spoke with pt and [...] Toby Chester APRN.KAZ documented in this encounter [facility] 03-26-2023 Note HNO ID: [id number] Author: Toby Chester APRN.CNP Service: ? Author [...] upcoming appointment with a counselor at the [facility]. Denies SI, HI or insomnia PHQ9: 17 [...] - Instructed patient to contact office or rncih-zu-kgld after-hours promptly should condition worsen or any new symptoms appear. - [facility] and after hours crisis line - Ever (more content not included)... [place] 03-26-2023 Instructions Toby Chester APRN.AUTOMAT CAR ATTENDANT - 03/26/2023 11:41 AM EDT GET HELP If you have symptoms of clinical depression, you can get help by doing one or more of the followin. Please talk with your doctor. 2. If you are already in treatment, make sure you contact and update your doctor or therapist. 3. Call the [facility] Department of Psychiatry & Psychology at [phone] (select Option 1) or [phone] (select Option 1) 4. Review additional options for care based on patient or provider preference: Central/Multiple Locations: [facility]: Multiple Locations - [phone] [facility]: [address] [facility]- [phone] Eric Cain: [address] [facility]- [phone] [facility] center[facility].: [address] [facility] - [phone] [facility]: [address] [facility] - [phone] [place] [facility]: [facility] - [phone] (Medicaid only) [facility]: Multiple Locations - [phone] (Medicaid only) Augusto Austin [facility]: Multiple Locations - [phone] Danielle Trejo [facility] - Multiple Locations - [phone] (Medicaid only) [facility] Multiple Locations- [phone] Psychological and Behavioral Consultants: Multiple Locations - [phone] [facility]: Multiple Locations - [phone] [facility] Locations: [facility]: [address] [facility] - [phone] Binta Fernandez PhD and Associates: [address] [facility] - [phone] [facility]: [address] [place] [address] - [phone] [place] [id number] [facility] [address] - [phone] Monroe Adams MD: [address] [place] Chelly [place]- [phone] [facility] [address], [place] - [phone] [facility]: [address] - [phone]; 24 hotline - [phone] [facility], [address] [facility] - [phone] [place] Locations: Tracy Boland MD [facility] Inc: [address], [place] - [phone] Binta Fernandez PhD and Associates: [address] [facility] - [phone] [facility] Services: [address] [facility] - [phone] [facility].: [address] [facility] - [phone] [facility], [address] [facility], [address] - [phone] [facility] - [address] [facility] - [phone] [facility]: [address] [facility] [phone] [place] Locations: [facility] and [facility]ing Services [facility] - [phone] [facility] L Soham Wilson, [facility]. - [phone] [facility] Psychiatry: 1 [facility] [place]- [phone] [facility]: [address] [facility],- [phone] [facility] - [address] [place] - [phone] For additional resources and information please call 2-1-1 or review the website: [email or web address] [email or web address] If you are feeling suicidal, please call Mobile Crisis, , or the National Suicide Hotline , Call 791, or go to your nearest emergency room documented in this encounter [facility] 03-26-2023 History of Presen t illness Narrative 03/26/2023 Patient presents with: Establish Care SUBJECTIVE: This is a 27 year old that is here today for Above Complaints. Admits to depressive symptoms. Has never been treated for depression or anxiety. Did see [facility] psychologist recently and has upcoming appointment with a counselor at the [facility]. Denies SI, HI or insomnia PHQ9: 17 [...] - Instructed patient to contact office or uqpul-uo-zjvg after-hours promptly should condition worsen or any new symptoms appear. - [facility] and after hours crisis line - [...] he is interested in either Toby Chester, PEDRO.AUTOMAT CAR ATTENDANT Prescription instructions reviewed with patient as applicable. [...] which included preparing to see the patient, xfuw-lg-uazj patient care, completing clinical documentation, obtaining and/or reviewing separately obtained history, performing a medically appropriate examination, counseling and educating the patient/family/caregiver, and ordering medications, tests, or procedures. documented in this encounter [facility] 11-16-2022 Note HNO ID: [id number] Author: Elder Bai, PhD Service: ? Author Type: Psychologist Type: Progress Notes Filed: 11/16/2022 11:27 AM Note Text: [facility] Progress Note Tyra Sagastume 11/16/2022 [id number] Provider: Elder Bai, PhD CPT Code: 37407 Psychiatric diagnostic evaluation Time: Approximately 50 minutes was spent in therapy. Setting: Patient seen in person Parties Present: Patient Patient Presentation/Concerns: INITIAL VISIT pt grew up with younger sister and nice laid back parents in isolated small area w no nearby peers.. felt isolated and poor crappy looking back mom pushed college .. 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 and like the people but doesnt feel like a life's work PLAN: gave infor to work with [employer] severely OVERWEIGHT: pt is meeting w a medical professional and will seek a heating and cooling systems engineer's help to see if he can start to lose after failing at other approaches or perhaps a candidate for bariatric surgery DX: Pt has periods of Depression and reactive Anxiety that come and go Also wonders if he has high end Autistic spectrum PLAN: gave access to [email or web address] and a video about Autism Family Hx [...] Psychiatric Medication Issues: see med record DIAGNOSIS: Hollytree I: Anxiety and Depression Over weight occupational exploration r/o Autism Hollytree II: deferred Hollytree III: see med record Hollytree IV: mood weight Hollytree V:51-60 Treatment Modality/Interventions: Cognitive Behavioral Reassurance/Supportive Insight oriented Problem solving Communication skills training Goal setting Treatment planning Psychoeducation TREATMENT ASSESSMENT/PROGRESS: . Progressing satisfactorily. TREATMENT PLAN/GOALS: Continue in therapy focusing on self-care, interpersonal relationships, improving communication, affect management, anxiety management, self-esteem, and weight. Next appointment: as scheduled Elder Bai, PhD [place] 11-06-2022 Note HNO ID: [id number] Author: Bethany Britt APRN.AUTOMAT CAR ATTENDANT Service: ? Author Type: Nurse Practitioner Type: [...] Discussed expected course of illness Bethany Britt APRN.[facility] 11-06-2022 History of Presen t illness Narrative [...] Discussed expected course of illness Bethany Britt APRN.AUTOMAT CAR ATTENDANT documented in this encounter [facility] 11-06-2022 Instructions Bethany Britt APRN.CNP - 11/06/2022 [...] Bethany Britt APRN.CNP documented in this encounter [facility] 02-11-2022 Instructions Kirstin Palmer APRN.CNP - 02/11/2022 2:29 PM EDT Images from the original note were not included. Adult Sinusitis Patient Education What is Sinusitis? Sinusitis [tgea-vgs-hqji-tis] is inflammation of the sinuses or swelling [...] help. You may be instructed to take ignp-dzt-rzdmrku medications for symptoms. including fever reducers acetaminophen or ibuprofen, nasal saline spray, cough and cold preparations and decongestants as prescribed by the physician, nurse practitioner or physician internet marketing assistant. Self-Care and Prevention: Rest Fluids for hydration Good hand washing Humidifier Avoid smoking and exposure to second hand smoke Avoid sick contacts documented in this encounter [facility] 02-11-2022 History of Presen t illness Narrative This note was created using picoChip. Subjective Tyra Sagastume is a 26 year [...] history is provided by the patient. No it communications specialist was used. Sinus Problem This is a [...] Kirstin Palmer APRN.CNP documented in this encounter [facility] documented in this encounter [facility] Diagnosis Blood in stool- Primary documented [facility]* Diagnosis Encounter for medical examination to establish care- Primary Screening for cholesterol level Screening for lipoid disorders Anxiety and depression Dysthymic disorder Snoring Other dyspnea and respiratory abnormality Daytime somnolence Hypersomnia, unspecified Morbid obesity with body mass index of 70 and over in adult (HCC) Morbid obesity documented [facility] this [facility] Diagnosis Snoring- Primary Other dyspnea and respiratory abnormality Daytime somnolence Hypersomnia, unspecified Morbid obesity with body mass index of 70 and over in adult (HCC) Morbid obesity [facility]* Diagnosis Anxiety and depression Dysthymic disorder documented in this encounter [facility]* Diagnosis Pain- Primary Generalized pain documented in this encounter [facility] note* Diagnosis Chronic left shoulder pain- Primary Pain in joint, shoulder region documented [facility] this encounter [facility]* Diagnosis Anxiety and depression- Primary Dysthymic disorder documented in this encounter [facility]* Diagnosis Chronic left shoulder pain- Primary Pain in joint, shoulder region documented [facility] encounter [facility]* Diagnosis Snoring- Primary Other dyspnea and respiratory abnormality Obesity, Class III, BMI 40-49.9 (morbid obesity) (HCC) Morbid obesity Daytime somnolence Hypersomnia, unspecified documented in this encounter [facility] note* Diagnosis Right lower quadrant abdominal pain- Primary Abdominal pain, right lower quadrant documented in this encounter [facility] note* Diagnosis Benign essential HTN- Primary Essential hypertension, benign Class 3 severe obesity without serious comorbidity with body mass index (BMI) greater than or equal to 70 in adult, unspecified obesity type (HCC) ERICA (obstructive sleep apnea) Obstructive sleep apnea (adult) (pediatric) documented in this encounter [facility] note* Diagnosis Viral illness- Primary Unspecified viral infection, in conditions classified elsewhere and of unspecified site documented in this encounter [facility] note* Diagnosis Benign essential HTN- Primary Essential hypertension, benign Encounter for immunization Need for other specified prophylactic vaccination against single bacterial disease documented in this encounter [facility] for referral (narrative)* Diagnostic Procedure Only (Routine) - Pending Review Specialty Diagnoses / Procedures Referred By Edwin thompson Ref[facility] To [facility] Diagnoses Snoring Daytime somnolence Procedures HOME SLEEP APNEA TEST (HSAT) SLEEP STD AIRFLOW HRT RATE&O2 SAT EFFORT Toby Anthony APRN.AUTOMAT CAR ATTENDANT [address] [place] [address] [facility] [address] [place] [id number] Referral ID Status Reason Start Date Expiration Date Visits Requested Visits Authorized [id number] Pending Review Auto-Generat ed Referral 03/26/2023 03/25/2024 1 1 [facility] for referral (narrative)* Diagnostic Procedure Only (Routine) - Authorized Specialty Diagnoses / Procedures Referred By Contac t Referred To Contact XR IMAGING Diagnoses Pain Procedures XR SHOULDER GENERAL 3V OR MORE AP/TRUE AP/OTHER LEFT RADEX SHOULDER COMPLETE MINIMUM 2 VIEWS Elbert Braun MD [address] [facility] [address] [place] [address] Xr Imaging [id number] Referral ID Status Reason Start Date Expiration Date Visits Requested Visits Authorized [id number] Authorized Auto-Generat ed Referral 05/16/2023 06/14/2024 1 1 [facility] for referral (narrative)* Diagnostic Procedure Only (Routine) - Authorized Specialty Diagnoses / Procedures Referred By Contac t Referred To Contact XR IMAGING Diagnoses Chronic left shoulder pain Procedures XR SHOULDER GENERAL 3V OR MORE AP/TRUE AP/OTHER LEFT RADEX SHOULDER COMPLETE MINIMUM 2 VIEWS Nely Song PA-C [address] [place] [address] Xr Imaging [id number] Referral ID Status Reason Start Date Expiration Date Visits Requested Visits Authorized [id number] Authorized Auto-Generat ed Referral 06/25/2023 07/24/2024 1 1 T [facility] Summary Purpose Family History No Family History Records FoundNo Family History Records Found Advance Directives No Advanced Directives Records FoundNo Advanced Directives Records Found Reason for Referral Specialty Diagnoses / Procedures Referred By Contac t Referred To Contact Diagnoses Snoring Obesity, Class III, BMI 40-49.9 (morbid obesity) (HCC) Daytime somnolence Procedures CONSULT TO SLEEP MEDICINE - ADULT OFFICE/OUTPATIENT [facility] MDM 60-74 MINUTES Ambika Johnson MD [address] [place] [address] Referral ID Status Reason Start Date Expiration Date Visits Requested Visits Authorized [id number] Pending Review PCP Requested Referral 3 07/14/2024 1 1 Specialty Diagnoses / Procedures Referred By Contac t Referred To Contact Diagnoses Class 3 severe obesity without serious comorbidity with body mass index (BMI) greater than or equal to 70 in adult, unspecified obesity type (HCC) Procedures [facility]SULT [facility] OFFICE/OUTPATIENT [facility] MDM 60-74 MINUTES PodlogToby townsend APRN.CNP [address] [place] [address] Referral ID Status Reason Start Date Expiration Date Visits Requested Visits Authorized [id number] Pending Review PCP Requested Referral 08/30/2023 08/29/2024 1 1 Additional Source Comments (unrecognized sect ion and content) No Status Records FoundNo Status Records Found INFORMATION SOURCE (unrecogn ized section and content) DATE CREATED AUTHOR AUTHOR'S ORGANIZ ATION 09/15/2023 [place] Source Comments (unrecognize d section and content) In the event this informatio n is protected by the Federal Confidentiality of Alcohol and Drug Abuse Patient Records regulations: The Federal rules restrict any use of the information to criminally investigate or prosecute any alcohol or drug abuse patient.[facility] the event this information is protected by the Federal Confidentiality of Alcohol and Drug Abuse Patient Records regulations: The Federal rules restrict any use of the information to criminally investigate or prosecute any alcohol or drug abuse patient.[facility] the event this information is protected by the Federal Confidentiality of Alcohol and Drug Abuse Patient Records regulations: The Federal rules restrict any use of the information to criminally investigate or prosecute any alcohol or drug abuse patient.[facility] the event this information is protected by the Federal Confidentiality of Alcohol and Drug Abuse Patient Records regulations: The Federal rules restrict any use of the information to criminally investigate or prosecute any alcohol or drug abuse patient.[facility] the event this information is protected by the Federal Confidentiality of Alcohol and Drug Abuse Patient Records regulations: The Federal rules restrict any use of the information to criminally investigate or prosecute any alcohol or drug abuse patient.[facility] Campus[facility] the event this information is protected by the Federal Confidentiality of Alcohol and Drug Abuse Patient Records regulations: The Federal rules restrict any use of the information to criminally investigate or prosecute any alcohol or drug abuse patient.[facility] Campus[facility] the event this information is protected by the Federal Confidentiality of Alcohol and Drug Abuse Patient Records regulations: The Federal rules restrict any use of the information to criminally investigate or prosecute any alcohol or drug abuse patient.[facility] Campus[facility] the event this information is protected by the Federal Confidentiality of Alcohol and Drug Abuse Patient Records regulations: The Federal rules restrict any use of the information to criminally investigate or prosecute any alcohol or drug abuse patient.[facility] Campus[facility] the event this information is protected by the Federal Confidentiality of Alcohol and Drug Abuse Patient Records regulations: The Federal rules restrict any use of the information to criminally investigate or prosecute any alcohol or drug abuse patient.[facility] Campus[facility] the event this information is protected by the Federal Confidentiality of Alcohol and Drug Abuse Patient Records regulations: The Federal rules restrict any use of the information to criminally investigate or prosecute any alcohol or drug abuse patient.[facility] Campus[facility] the event this information is protected by the Federal Confidentiality of Alcohol and Drug Abuse Patient Records regulations: The Federal rules restrict any use of the information to criminally investigate or prosecute any alcohol or drug abuse patient.[facility] Campus[facility] the event this information is protected by the Federal Confidentiality of Alcohol and Drug Abuse Patient Records regulations: The Federal rules restrict any use of the information to criminally investigate or prosecute any alcohol or drug abuse patient.[facility] Campus[facility] the event this information is protected by the Federal Confidentiality of Alcohol and Drug Abuse Patient Records regulations: The Federal rules restrict any use of the information to criminally investigate or prosecute any alcohol or drug abuse patient.[facility] CampusIn the event this information is protected by the Federal Confidentiality of Alcohol and Drug Abuse Patient Records regulations: The Federal rules restrict any use of the information to criminally investigate or prosecute any alcohol or drug abuse patient.[facility] CampusIn the event this information is protected by the Federal Confidentiality of Alcohol and Drug Abuse Patient Records regulations: The Federal rules restrict any use of the information to criminally investigate or prosecute any alcohol or drug abuse patient.[facility] CampusIn the event this information is protected by the Federal Confidentiality of Alcohol and Drug Abuse Patient Records regulations: The Federal rules restrict any use of the information to criminally investigate or prosecute any alcohol or drug abuse patient.[facility] CampusIn the event this information is protected by the Federal Confidentiality of Alcohol and Drug Abuse Patient Records regulations: The Federal rules restrict any use of the information to criminally investigate or prosecute any alcohol or drug abuse patient.[facility] CampusIn the event this information is protected by the Federal Confidentiality of Alcohol and Drug Abuse Patient Records regulations: The Federal rules restrict any use of the information to criminally investigate or prosecute any alcohol or drug abuse patient.[facility] Reason for Visit (unrecogniz ed section and [...] Care Teams (unrecognized sec tion and content) Deicer Repairer Pneumatic Relationship Specialty Start Date End Date Ambika Johnson MD [address] [place] [address] PCP - General Family Medicine 03/26/23 PodlogarToby APRN.AUTOMAT CAR ATTENDANT [address] [place] [address] Family Medicine 03/26/23 Deicer Repairer Pneumatic Relationship Specialty Start Date End Date Ambika Johnson MD [address] [place] [address] PCP - General Family Medicine 03/26/23 PodlogarToby APRN.AUTOMAT CAR ATTENDANT [address] [place] [address] Family Medicine 03/26/23 Deicer Repairer Pneumatic Relationship Specialty Start Date End Date Ambika Johnson MD [address] [place] [address] PCP - General Family Medicine 03/26/23 Podlogar, Toby, SALESPERSON [employer].AUTOMAT CAR ATTENDANT [address] [facility] [place] [address] Family Medicine 03/26/23 Deicer Repairer Pneumatic Relationship Specialty Start Date End Date Ambika Johnson MD [address] [facility] [place] [address] PCP - General Family Medicine 03/26/23 Podlogar, Toby, SALESPERSON [employer].AUTOMAT CAR ATTENDANT [address] [place] [address] Family Medicine 03/26/23 Deicer Repairer Pneumatic Relationship Specialty Start Date End Date Ambika Johnson MD [address] [place] [address] PCP - General Family Medicine 03/26/23 Podlogar, Toby, SALESPERSON [employer].AUTOMAT CAR ATTENDANT [address] [place] [address] Family Medicine 03/26/23 Deicer Repairer Pneumatic Relationship Specialty Start Date End Date Ambika Johnson MD [address] [place] [address] PCP - General Family Medicine 03/26/23 Podlogar, Toby, SALESPERSON [employer].AUTOMAT CAR ATTENDANT [address] [facility] [place] [address] Family Medicine 03/26/23 Deicer Repairer Pneumatic Relationship Specialty Start Date End Date Ambika Johnson MD [address] [place] [address] PCP - General Family Medicine 03/26/23 Podlogar, Toby, SALESPERSON [employer].AUTOMAT CAR ATTENDANT [address] [place] [address] Family Medicine 03/26/23 Deicer Repairer Pneumatic Relationship Specialty Start Date End Date Ambika Johnson MD [address] [facility] [place] [address] PCP - General Family Medicine 03/26/23 Podlogar, Toby, SALESPERSON [employer].AUTOMAT CAR ATTENDANT [address] [place] [address] Family Medicine 03/26/23 Deicer Repairer Pneumatic Relationship Specialty Start Date End Date Ambika Johnson MD [address] [facility] [place] [address] PCP - General Family Medicine 03/26/23 Podlogar, Toby, SALESPERSON [employer].AUTOMAT CAR ATTENDANT [address] [facility] [address] Family Medicine 03/26/23 Deicer Repairer Pneumatic Relationship Specialty Start Date End Date Ambika Johnson MD [address] [facility] [address] PCP - General Family Medicine 03/26/23 Podlogar, Toby, SALESPERSON [employer].AUTOMAT CAR ATTENDANT [address] [facility] [place] [address] Family Medicine 03/26/23 Deicer Repairer Pneumatic Relationship Specialty Start Date End Date Ambika Johnson MD [address] [facility] [place] [address] PCP - General Family Medicine 03/26/23 Podlogar, Toby, [employer]AUTOMAT CAR ATTENDANT [address] [place], [place] [id number] Family Medicine 03/26/23 Deicer Repairer Pneumatic Relationship Specialty Start Date End Date Ambika Johnson MD [address] [place], [place] [id number] PCP - General Family Medicine 03/26/23 PodlogarToby, [employer]ERSON [employer]AUTOMAT CAR ATTENDANT [address] [place], [place] [id number] [facility] Medicine 03/26/23 Deicer Repairer Pneumatic Relationship Specialty Start Date End Date Ambika Johnson MD [address] [place], [place] [id number] PCP - General Family Medicine 03/26/23 PodlogarToby, [employer]ESPERSON [employer]AUTOMAT CAR ATTENDANT [address] [place], [place] [address] [facility] Medicine 03/26/23 FOR RECORDS PERTAINING TO [...] BE BASED ON THE PRIMARY CLINICAL RECORDS. [employer] provides no warranty or guarantee of the accuracy or completeness of information in this document.
[2023-10-14] MEDS: Orphenadrine 60 MG/2 ML Ampul IM (16:32)
[2023-10-14] MEDS: Ketorolac 30 MG/ML Syringe IM (16:32)
== END 2023-10-14 17:54 | disposition home or self-care (01) ==
PROVIDERS: Emergency Provider Emergency Medicine; PCP Nurse Practitioner Primary Care; Visit Provider Emergency Medicine
DX: S39.012A Strain of muscle, fascia and tendon of lower back, initial encounter (principal); E66.01 Morbid (severe) obesity due to excess calories; M54.16 Radiculopathy, lumbar region; X58.XXXA Exposure to other specified factors, initial encounter; I10 Essential (primary) hypertension; R00.0 Tachycardia, unspecified
CPT/HCPCS: 72100; 96372; 99282